=== PATIENT | male | born 1975 | race Two or more races ===

== ENCOUNTER 2020-02-03 18:59 | Inpatient (IN) | payer OTHER ==
[~2020-02-03] VITALS: Ht 180.3 cm; Wt 99.8 kg
[2020-02-03] MEDS ORDERED: IV NS 0.9% 1,000 ML IV ONE (19:15)
[2020-02-03] MEDS ORDERED: ACETAMINOPHEN ES 500 MG TABLET ONE (19:22)
[2020-02-03] MEDS ORDERED: ONDANSETRON HCL/PF 4 MG/2 ML VIAL IVP ONE (19:30)
[2020-02-03] MEDS ORDERED: ACETAMINOPHEN ES 500 MG TABLET PO ONE (19:30)
[2020-02-03] MEDS ORDERED: IV NS 0.9% 1,000 ML BAG IV ONE ×2 (19:30→21:00)
[2020-02-03] MEDS ORDERED: ONDANSETRON HCL/PF 4 MG/2 ML VIAL ONE (19:32)
--- NOTE | 2020-02-03 19:54 | NUR ---
BIB ra c/o hyperglycemia and weakness. BS>500. PT AAOX4, VSS. RR EVEN & UNLABORED. DENIES CP, SOB, DIZZINESS, DIARRHEA AT THIS TIME. PT SEEN & EVAL'D BY DR. JAY. MEDICATED ORDERED. PLACED ON DIRECTOR OF KIDS, ST. WILL CONT TO MONITOR.
[2020-02-03 20:08] LABS: BASOPHILS % (AUTO) 0.1 % (0.0-2.0); HEMATOCRIT 41 % (39-51); HEMOGLOBIN 13.5 g/dL (13.5-17.5); LYMPHOCYTES # (AUTO) 0.5 /CMM (0.8-4.8); LYMPHOCYTES % (AUTO) 2.6 % (20.0-44.0); MEAN CORPUSCULAR HGB CONC 33 g/dl (31.0-36.0); MEAN CORPUSCULAR VOLUME 92 fL (80-96); MONOCYTES # (AUTO) 0.7 /CMM (0.1-1.30); MONOCYTES % (AUTO) 3.6 % (2.0-12.0); NEUTROPHILS # (AUTO) 17.1 /CMM (1.8-8.9); NEUTROPHILS % (AUTO) 93.7 % (43.0-81.0); PLATELET COUNT (AUTO) 172 /CMM (150-450); RED BLOOD CELL COUNT(AUTO) 4.48 MIL/uL (4.5-6.0); WHITE BLOOD COUNT (AUTO) 18.3 K/uL (4.3-11.0)
[2020-02-03] MEDS ORDERED: CEFTRIAXONE 1GM BAG (ER ONLY) 50 ML IV ONE ×2 (20:30→20:32)
[2020-02-03 20:34] LABS: ALANINE AMINOTRANSFERASE 19 U/L (12-78); ALBUMIN 2.9 g/dL (3.4-5.0); ALKALINE PHOSPHATASE 108 U/L (46-116); ASPARTATE AMINOTRANSFERASE 15 U/L (15-37); B-TYPE NATRIURETIC PEPTIDE 590 PG/ML (0-125); BILIRUBIN,TOTAL 0.6 mg/dL (0.2-1.0); CALCIUM, SERUM 8.5 mg/dL (8.5-10.1); CARBON DIOXIDE 21 mmol/L (21-32); CHLORIDE 94 mmol/L (98-107); CREATININE 1.5 mg/dL (0.6-1.3); POTASSIUM 4.5 mmol/L (3.5-5.1); SODIUM SERUM 129 mmol/L (136-145); TOTAL PROTEIN, SERUM 6.6 g/dL (6.4-8.2); UREA NITROGEN, BLOOD 20 mg/dL (7-18)
[2020-02-03 20:37] LABS: GLUCOSE 480 mg/dL (74-106)
[2020-02-03] MEDS ORDERED: INSULIN REGULAR, HUMAN 100 UNIT/ML 10 ML VIAL ONE (20:46)
[2020-02-03 20:51] LABS: BAND % (MANUAL) 8 % (0.0-5.0); LYMPHOCYTES % (MANUAL) 4 % (16-48); MONOCYTES % (MANUAL) 4 % (0-11.0); NEUTROPHILS % (MANUAL) 84 (42-76)
--- NOTE | 2020-02-03 20:59 | NUR ---
PT EYES CLOSED, EASILY AWAKEN BY VERBAL STIMULI. DENIES CP, SOB, DIZZINESS, N/V AT THIS TIME. WILL CONT TO MONITOR.
[2020-02-03] MEDS ORDERED: INSULIN REGULAR, HUMAN 100 UNIT/ML 10 ML VIAL SQ ONE (21:00)
--- NOTE | 2020-02-03 21:00 | NUR ---
PER ADMITTING AWAITING [employer]ET[employer] INTERN MAY TO ARRANGE PEER TO PEER
--- NOTE | 2020-02-03 21:27 | NUR ---
CALLED REGAL DECEMBER, , STATES ARRANGING PEER TO PEER WITH MD WILL MOST LIKELY BE TRANSFERRED
--- NOTE | 2020-02-03 21:29 | NUR ---
DR GAMEZ SPEAKING WITH DR JAY
[2020-02-03 21:39] LABS: CREATINE KINASE, TOTAL 34 U/L (39-308); FERRITIN 291 ng/mL (8-388)
--- NOTE | 2020-02-03 21:53 | NUR ---
PT IS GOING TO 261
[2020-02-03] MEDS ORDERED: IBUPROFEN 600 MG TABLET PO ONE ×2 (21:56→22:00)
[2020-02-03] MEDS ORDERED: INSULIN GLARGINE, 100 UNIT/ML CARTRIDGE SQ SCH (22:00)
[2020-02-03] MEDS ORDERED: DEXTROSE 50%-WATER 50 ML DISP.SYRIN IV PRN (22:00)
[2020-02-03] MEDS ORDERED: ZOLPIDEM TARTRATE 5 MG TABLET PO PRN (22:00)
--- NOTE | 2020-02-03 22:40 | NUR ---
REPORT GIVEN TO RENATA MARX FOR ELVIS.
[2020-02-03] MEDS ORDERED: VANCOMYCIN 2 GM in IV NS 0.9% 500 ML IV ONE (23:00)
--- NOTE | 2020-02-03 23:20 | NUR ---
RN NOTE PT ARRIVED FROM ER VIA [facility] ACCOMPANIED BY 2 RNS UNDER ACLS PROTOCOL. PT TRANSFERRED FROM [facility] TO ASSIGNED BED VIA 2 PERSON ASSIST. PT IS ALERT AND ORIENTED X 2 WITH PERIODS OF CONFUSION AT THIS TIME. PT PLACED ON BEDSIDE MONITOR WHICH SHOWS SINUS TACHYCARDIA 122. PT WITH 18G IV ON LEFT AC FROM ER. PATENT AND FLUSHING WELL. NOTED WITH SCROTAL SWELLING AND REDNESS. PT DOES NOT REMEMBER WHEN SYMPTOMS FIRST STARTED. PT UNABLE TO GIVE MEDICAL OR FAMILY HISTORY AT THIS TIME DUE TO WEAKNESS AND CONFUSION. PT PLACED ON 2 L OF O2 VIA NC. PT REFUSED INSERTION OF SHIPMAN CATHETER. CALL LIGHT WITHIN REACH, SAFETY MEASURES IN PLACE, WILL MONITOR PATIENT.
[2020-02-03 23:31] VITALS: BP 88/57
[2020-02-03] MEDS: IV 1/2NS 1000 ML 1,000 ML IV PRN (23:34)
[2020-02-03] MEDS: BLOOD SUGAR DIAGNOSTIC 1 EACH STRIP VI SCH (23:34)
[2020-02-03] MEDS ORDERED: VANCOMYCIN 1 GM VIAL ONE (23:38)
[2020-02-03] MEDS ORDERED: PIPERACILLIN /TAZOBACTAM 2.25 G VIAL IV ONE (23:39)
[2020-02-03 23:42] LABS: BILIRUBIN,DIRECT 0.3 mg/dL (0.0-0.2)
[2020-02-04] VITALS (15 sets, daily range): BP systolic 89–140; BP diastolic 56–83
[2020-02-04] MEDS ORDERED: IV NS 0.9% 250 ML IV ONE
[2020-02-04] MEDS ORDERED: PIPERACILLIN /TAZOBACTAM 2.25 G in IV D5W 50 ML IV SCH ×4
--- NOTE | 2020-02-04 | NUR ---
RN NOTE NOTED WITH LACTIC ACID 3.9. NOTED TO BE TRENDING DOWNWARD. DR. HOWARD NOTIFIED OF TREND.
[2020-02-04 00:09] LABS: BILIRUBIN,URINE Negative (NEGATIVE); BLOOD, URINE Negative Ery/uL (NEGATIVE); COLOR,URINE Yellow (YELLOW); KETONES,URINE Trace (NEGATIVE); LEUKOCYTE ESTERASE ,URINE Trace (NEGATIVE); NITRITE, URINE Negative (NEGATIVE); PROTEIN,URINE Negative (NEGATIVE); UGLUCOSE >=1000 mg/dL (NEGATIVE); UROBILINOGEN,URINE 0.2 EU/dL (0.2)
[2020-02-04 00:10] LABS: APPEARANCE,URINE HAZY (CLEAR)
[2020-02-04] MEDS ORDERED: INSULIN REGULAR, HUMAN 100 UNIT/ML 3 ML VIAL ONE (00:15)
[2020-02-04] MEDS ORDERED: INSULIN GLARGINE, 100 UNIT/ML CARTRIDGE SQ ONE ×2 (00:15→08:30)
[2020-02-04 00:22] LABS: BACTERIA,URINE Moderate /HPF (None Seen); SQUAMOUS EPITHELIAL CELL,UR Few /HPF (None Seen)
[2020-02-04 00:23] LABS: MUCUS,URINE Few /LPF (None Seen); YEAST,URINE Moderate /HPF (None Seen)
[2020-02-04] MEDS: *INSULIN REGULAR(HUMULIN R)HUM 100 UNIT/ML VIAL SQ PRN ×3 (00:40→18:19)
--- NOTE | 2020-02-04 04:25 | NUR ---
RN NOTE PT NOTED TO BE MORE ALERT AND ORIENTED. A/O x 3. PT STILL LETHARGIC BUT AROUSABLE TO VERBAL AND TACTILE STIMULI AND ABLE TO RESPOND TO QUESTIONS MORE APPROPRIATELY, WILL CONTINUE TO MONITOR PATIENT.
[2020-02-04 04:50] LABS: THYROID STIMULATING HORMONE 0.799 uIU/mL (0.358-3.74)
--- NOTE | 2020-02-04 05:09 | NUR ---
RN NOTE RECEIVED ALERT FOR CRITICAL LAB VALUE: LACTIC ACID 3.1. NOTED TO BE TRENDING DOWNWARD. DR. HOWARD NOTIFIED.
--- NOTE | 2020-02-04 05:28 | NUR ---
RN NOTE NOTED WITH HEART RATE IN THE 130S. PT IS ASYMPTOMATIC. PAGED DR. HOWARD.
--- NOTE | 2020-02-04 05:36 | NUR ---
RENATA NOTE DR. HOWARD CALLED BACK WITH NEW ORDER FOR METOPROLOL 25G PO Q12H. ORDER NOTED AND CARRIED OUT. Addendum: 02/04/20 at 0537 by FRANCISCO J HAYES RN ERROR. METOPROLOL 25MG PO Q12H. Addendum: 02/04/20 at 0539 by FRANCISCO J HAYES RN ERROR. METOPROLOL 25MG PO BID STARTING NOW.
[2020-02-04] MEDS: METOPROLOL TARTRATE 25 MG TABLET PO SCH ×2 (05:49→17:45)
[2020-02-04] MEDS ORDERED: METOPROLOL TARTRATE 25 MG TABLET PO SCH (06:00)
[2020-02-04] MEDS: IV 1/2NS 1000 ML 1,000 ML IV PRN (06:51)
--- NOTE | 2020-02-04 06:55 | NUR ---
RN CLOSING NOTE PT RESTING IN BED IN SEMI ASENCIO'S POSITION EASILY AROUSABLE TO VERBAL AND TACTILE STIMULI. ALERT AND ORIENTED X 3. ABLE TO MAKE NEEDS KNOWN. PT ASSISTED WITH BED JOHNSON BUT PT WAS UNABLE TO HAVE A BOWEL MOVEMENT. PT ON 2L OF O2 VIA NC. PT ON BEDSIDE MONITOR WHICH SHOWS SINUS TACHYCARDIA 121. PT IS ASYMPTOMATIC. DENIES PAIN OR DISCOMFORT. RUNNING WITH 0.45% NS @ 125ML/HOUR ORDERED VIA LEFT AC 18 G IV. NO SIGNS OF COMPLICATIONS AT SITE. CALL LIGHT WITHIN REACH, SAFETY MEASURES IN PLACE, WILL ENDORSE TO MORNING RN.
[2020-02-04] MEDS: BLOOD SUGAR DIAGNOSTIC 1 EACH STRIP VI SCH ×4 (07:30→22:31)
[2020-02-04] MEDS: INSULIN REGULAR, HUMAN 100 UNIT/ML 3 ML VIAL SQ PRN (08:00)
--- NOTE | 2020-02-04 08:17 | NUR ---
WOUND CARE CONSULT: REVIEWED CHART, NURSING DOCUMENTATION AND PHOTO WHICH SHOWS REDNESS, SWELLING AND DISCOLORATION TO SCROTUM, PRESENT ON ADMISSION. RECOMMENDATIONS MADE FOR SKIN CARE AND PROTECTION. DISCUSSED WITH NURSING STAFF. WILL SEE PRN. CURRENT HOLLY SCORE IS 16. MD IN AGREEMENT WITH PLAN OF CARE.
[2020-02-04] MEDS ORDERED: LISI-607 PO (08:30)
[2020-02-04] MEDS ORDERED: ATOR20TA (08:30)
[2020-02-04] MEDS ORDERED: DICL100T85 MT (08:30)
[2020-02-04] MEDS ORDERED: OXYB5TAB16 MT (08:30)
[2020-02-04] MEDS ORDERED: INSU100I26 SQ (08:30)
[2020-02-04] MEDS ORDERED: Z GUARD REMEDY 2 OZ OINT TP PRN (08:30)
[2020-02-04] MEDS ORDERED: ESCI10TA PO (08:30)
[2020-02-04] MEDS ORDERED: GLYB5TAB7 PO (08:30)
[2020-02-04] MEDS ORDERED: OMEP20CA15 PO (08:30)
[2020-02-04] MEDS ORDERED: FEE PK DOSING 1 MIN EA MC ONE (08:42)
[2020-02-04 09:25] LABS: CALCIUM, SERUM 7.6 mg/dL (8.5-10.1); CREATININE 1.4 mg/dL (0.6-1.3); POTASSIUM 4.3 mmol/L (3.5-5.1)
[2020-02-04] MEDS: CLOTRIMAZOLE 1% 15 GM TUBE TP SCH ×2 (09:50→17:46)
[2020-02-04] MEDS: Z GUARD REMEDY 2 OZ OINT TP SCH (09:50)
[2020-02-04] MEDS: PIPERACILLIN /TAZOBACTAM 3.375 G in IV D5W 100 ML IV SCH ×2 (09:53→19:28)
[2020-02-04] MEDS: ENOXAPARIN SODIUM 40 MG/0.4 ML DISP.SYRIN SQ SCH (09:53)
[2020-02-04] MEDS: ACETAMINOPHEN 325 MG TABLET PO PRN (10:27)
--- NOTE | 2020-02-04 11:04 | NUR ---
ICU to MedSurg Downgrade order from Dr. Ann, medsurg status, aware of fever 103.2 + HR 130s+scrotum swelling. Transfer initiated per ACLS protocol, with belongings (cellphone, clothes). BP 120/82, sinus rhythm, HR 130s, SPO2 94% on RA, RR 35. Receiving RN Rachana at bedside. Suction setup.
--- NOTE | 2020-02-04 11:05 | NUR ---
RECEIVED PT ON BED FROM ICU NURSE, PATIENT IS A/OX4, N RA, TOLERATING WELL, NO S/SX OF DISTRESS,IV SITE ON LAC G18 WITH DOUBLE LUMEN NOTED . INTACT AND PATENT, RUNNING 1/2 NS @125 CC/HR AND ZIXYN @25 CC/HR; PT IS USING URINAL, BED IN LOWEST POSITION, CALL LIGHT IN REACH, SAFETY MEASURES IMPLEMENTED, WILL CONT TO MONITOR
[2020-02-04] MEDS: VANCOMYCIN 1.5 GM in IV D5W 500 ML IV SCH (12:46)
--- NOTE | 2020-02-04 19:25 | NUR ---
RN CLOSING NOTE PT REMAINS IN BED, A/OX4, NO SIGNS AND SYMPTOMS OF DISTRESS NOTED, COMFORT NEEDS ARE MET, SAFETY MEASURES IMPLEMENTED, CALL LIGHT WITHIN REACH, BED IN LOWEST POSITION, WILL ENDORSE TO PM SHIFT RN
--- NOTE | 2020-02-04 19:30 | NUR ---
RN OPENING NOTE RECEIVED PATIENT IN BED RESTING ALERT ORIENTED X4 VERBALLY RESPONSIVE ABLE TO MAKE NEEDS KNOWN, BREATHING IS EVEN AND UNLABORED NO SOB NOT ACUTE DISTRESS AT THIS TIME,ROLL OUT FOR COVID RESULT IS PENDING,CALL LIGHT WITHIN REACH,CONTINUE TO MONITOR.
[2020-02-04] MEDS ORDERED: INSULIN GLARGINE, 100 UNIT/ML CARTRIDGE SQ SCH (22:00)
[2020-02-05] MEDS ORDERED: VANCOMYCIN 500 MG VIAL ONE (00:20)
[2020-02-05] MEDS ORDERED: VANCOMYCIN 1 GM VIAL ONE (00:25)
[2020-02-05] MEDS: VANCOMYCIN 1.5 GM in IV D5W 500 ML IV SCH ×3 (00:30→20:48)
[2020-02-05] MEDS: PIPERACILLIN /TAZOBACTAM 3.375 G in IV D5W 100 ML IV SCH ×3 (01:44→17:29)
[2020-02-05 04:00] VITALS: BP 102/57
--- NOTE | 2020-02-05 06:00 | NUR ---
RN CLOSING NOTE, PATIENT REMAINS IN STABLE CONDITON,NEGATIVE FOR COVID ALERT ORIENTED X4 VERBALLY RESPONSIVE NO SOB NOT ACUTE DISTRESS NOTED,PATINT HAD TEMERATURE 100.1 AT 0500 ACETAMINOPHEN 650 MG GIVEN AT 0500,PATIENT REFUSED TO BE CHANGED,ALL DUE MEDS GIVEN MD ORDERED,ALL NEEDS MET.TRANSFERRED TO SECOND FLOOR AT ROOM 201 AT 0600 REPORT GIVEN TO JEANINE.
--- NOTE | 2020-02-05 07:00 | NUR ---
MS RN NOTES PATIENT IN BED ALERT ORIENTED X 4. NO ACUTE DISTRESS NOTED. BREATHING UNLABORED. NO COMPLAINT OF PAIN AT THIS TIME. IV ACCESS PATENT AND INTACT. NO REDNESS , NO SWELLING NOTED. SAFETY MEASURES IN PLACE. CALL LIGHT WITHIN REACH WILL CONTINUE TO MONITOR ACCORDINGLY.
[2020-02-05] MEDS: BLOOD SUGAR DIAGNOSTIC 1 EACH STRIP VI SCH ×4 (07:07→21:30)
[2020-02-05] MEDS: INSULIN REGULAR, HUMAN 100 UNIT/ML 3 ML VIAL SQ PRN ×3 (07:08→17:25)
[2020-02-05 07:09] LABS: CALCIUM, SERUM 7.8 mg/dL (8.5-10.1); CREATININE 1.2 mg/dL (0.6-1.3); POTASSIUM 3.1 mmol/L (3.5-5.1)
--- NOTE | 2020-02-05 07:18 | NUR ---
RN NOTES 0313 WILMA FROM LAB CALLED FOR COVID RESULT NEGATIVE[facility] NINA DONG RN AND OIL PAINTER ABRAHAM NOTIFIED
[2020-02-05 08:00] VITALS: BP 112/68
[2020-02-05] MEDS: Z GUARD REMEDY 2 OZ OINT TP SCH (08:40)
[2020-02-05] MEDS: CLOTRIMAZOLE 1% 15 GM TUBE TP SCH ×2 (08:40→17:26)
[2020-02-05] MEDS: METOPROLOL TARTRATE 25 MG TABLET PO SCH ×2 (08:43→17:19)
[2020-02-05] MEDS: ENOXAPARIN SODIUM 40 MG/0.4 ML DISP.SYRIN SQ SCH (08:46)
[2020-02-05] MEDS ORDERED: POTASSIUM CHLORIDE 20 MEQ TAB.PRT.SR PO ONE (09:00)
--- NOTE | 2020-02-05 09:30 | NUR ---
MS RN NOTES CALLED PHARMACY FOR NEW NING VALLADARES MD, SPOKE WITH KIYA SAID THEY WILL DELIVER TO THE FLOOR. WILL ADMINISTER ONCE AVAILABLE
--- NOTE | 2020-02-05 10:00 | NUR ---
MS RN NOTES FOLLOWED UP WITH PHARMACY FOR NEW LANTUS NOT AVAILABLE YET ON THE FLOOR, SPOKE WITH KIYA SAID THEY WILL DELIVER TO THE FLOOR. WILL ADMINISTER ONCE AVAILABLE
--- NOTE | 2020-02-05 10:25 | NUR ---
MS RN NOTES PATIENT SEEN AND EVALUATION BY DR HOWARD , MADE AWARE OF WI 106 AND TEMP 99.2, NO NEW ORDERS MADE AT THIS TIME. DR HOWARD ORDERED CONSULT WITH DR RICARDO ROMERO ( urology ) for Epididymo-orchitis . ORDERS CLARIFIED AND READ BACK, NOTED AND CARRIED OUT. CALLED DR MARIE . [facility] OFFICE SPOKE WITH STAFF , NOTIFIED ABOUT THE CONSULTATION.
[2020-02-05] MEDS: INSULIN GLARGINE, 100 UNIT/ML CARTRIDGE SQ SCH ×2 (10:52→21:24)
[2020-02-05] MEDS: ACETAMINOPHEN 325 MG TABLET PO PRN (12:55)
--- NOTE | 2020-02-05 15:15 | NUR ---
MS RN NOTES SPOKE WITH RICARDO PARRISH AWARE OF THE CONSULTATION ORDERED BY DR HOWARD.
[2020-02-05 16:00] VITALS: BP 123/65
--- NOTE | 2020-02-05 18:53 | NUR ---
MS RN NOTES PATIENT IN BED ALERT ORIENTED X 4. NO ACUTE DISTRESS NOTED. BREATHING UNLABORED. NO COMPLAINT OF PAIN AT THIS TIME. IV ACCESS PATENT AND INTACT. NO REDNESS , NO SWELLING NOTED. NEEDS ATTENDED AND ANTICIPATED. KEPT CLEAN, DRY AND COMFORTABLE. SAFETY MEASURES IN PLACE. CALL LIGHT WITHIN REACH. WILL ENDORSE TO NIGHT NURSE FOR CONTINUITY OF CARE.
--- NOTE | 2020-02-05 19:40 | NUR ---
RN OPENING NOTES RECEIVED REPORT FROM BAILEY RN, STEPHANIE. FOUND Pt AWAKE, RESTING IN BED, TALKING ON THE PHONE. Pt IS A/OX4, VERBAL, ABLE TO MAKE NEEDS KNOWN; BELARUSIAN SPEAKING BUT UNDERSTANDS THAI. NO S/S OF ACUTE DISTRESS OR SOB NOTED AT THIS TIME. PER REPORT Pt's HR BASELINE ST BETWEEN 110-120s (DR HOWARD IS AWARE). PER REPORT WAITING FOR UROLOGY CONSULT FROM DR KAUR. IV ACCESS FOUND ON LAC #18G & LHAND #22G & LWRIST #18G. SAFETY MEASURES IN PLACED. BED LOW, LOCKED, HOB ELEVATED, SIDE RAILS UP, CALL LIGHT AND BEDSIDE TABLE WITHIN REACH. WILL CONTINUE TO MONITOR Pt's CONDITION AND SAFETY THROUGHOUT THE NIGHT.
--- NOTE | 2020-02-05 19:48 | NUR ---
RN NOTES SPOKE WITH DR HOWARD ON THE PHONE. INFORMED HIM OF Pt's HIGH ORAL TEMP OF 102.9F. DR HOWARD ORDERED AN ADDITIONAL PRN OF MOTRIN 600MG PO Q6H FOR TEMP. WILL CARRY OUT ORDER.
[2020-02-05 20:00] VITALS: BP 118/66
[2020-02-05] MEDS ORDERED: IBUPROFEN 600 MG TABLET PO PRN (20:00)
[2020-02-05] MEDS: HYDROCODONE/APAP 5/325MG 1 EACH TABLET PO PRN (20:49)
[2020-02-05] MEDS: *INSULIN REGULAR(HUMULIN R)HUM 100 UNIT/ML VIAL SQ PRN (21:28)
--- NOTE | 2020-02-05 21:31 | NUR ---
RN NOTES BG 230. ADMINISTERED SCHEDULED LANTUS 20UN VIA LT DELTOID. GAVE ADDITIONAL 4UN OF REGULAR INSULIN PER SLIDING SCALE VIA LEFT LOWER ABD.
[2020-02-05] MEDS ORDERED: IV NS 0.9% 1,000 ML IV ONE (22:00)
--- NOTE | 2020-02-05 22:00 | NUR ---
RN NOTES RECHECKED ORAL TEMP S/P ADMINISTERING MOTRIN 600MG PO & PROVIDED ICE BATH NEW TEMP: 98.4F
--- NOTE | 2020-02-05 22:27 | NUR ---
RN NOTES Pt WAS SEEN BY UROLOGIST DR KAUR AT BEDSIDE FOR CONSULT. PER DR KAUR SCHEDULED Pt FOR A INCISION & DRAINAGE OF SCROTAL ABSCESS & SCROTAL DEBRIDEMENT TOMORROW 02/06/20 @1400. DR SPOKE WITH Pt IN THE ROOM ABOUT THE PROCEDURE, Pt AGREED TO IT. ORDER FOR CONSENT WAS PLACED BY DR. KAUR, WILL OBTAIN WRITTEN CONSENT FROM Pt AND PLACE IN CHART ROBERT.
[2020-02-05] MEDS ORDERED: LEVOFLOXACIN 500 MG /D5W 100ML 100 ML IV ONE (23:20)
[2020-02-05] MEDS: LEVOFLOXACIN 500 MG /D5W 100ML 500 MG in PREMIX 1 EA IV SCH (23:26)
[2020-02-06] VITALS (8 sets, daily range): BP systolic 120–141; BP diastolic 68–79
[2020-02-06] MEDS: PIPERACILLIN /TAZOBACTAM 3.375 G in IV D5W 100 ML IV SCH ×3 (02:49→17:54)
[2020-02-06] MEDS: VANCOMYCIN 1.5 GM in IV D5W 500 ML IV SCH ×5 (04:50→23:44)
--- NOTE | 2020-02-06 06:30 | NUR ---
RN NOTES AC ACCUCHECK BG 285. NO INSULIN COVERAGE GIVEN AT THIS TIME DUE TO NPO SURGERY STATUS.
--- NOTE | 2020-02-06 06:35 | NUR ---
RN NOTES CT ABD PELVIS W/ WO CONTRAST CONSENT SIGNED BY Pt AND PLACED IN FOLDER. CALLED RADIOLOGY ASKING FOR STAT, WAITING FOR KILN FIRER BY RADIOLOGY.
[2020-02-06 06:45] LABS: CALCIUM, SERUM 7.6 mg/dL (8.5-10.1); CREATININE 1.6 mg/dL (0.6-1.3); POTASSIUM 3.6 mmol/L (3.5-5.1)
--- NOTE | 2020-02-06 06:50 | NUR ---
RN CLOSING NOTES NO SIGNIFICANT CHANGES IN Pt'S CONDITION. Pt REMAINED STABLE PER BASELINE. NO S/S OF ACUTE DISTRESS OR SOB NOTED. ALL NEEDS MET AND ATTENDED TO. SAFETY MEASURES IN PLACE. Pt IS AWAKE, RESTING IN BED TALKING ON THE PHONE. CURRENTLY NPO WITH PROCEDURE SCHEDULED TODAY AT 1400. WAITING FOR RADIOLOGY TO FINISHING SUPERVISOR Pt ROBERT FOR CT ABD/PELVIS. WILL ENDORSE TO DAYSHIFT RN FOR Pt's ELVIS.
[2020-02-06 06:51] LABS: BASOPHILS % (AUTO) 0.4 % (0.0-2.0); EOSINOPHILS % (AUTO) 1.4 % (0.0-6.0); HEMATOCRIT 34 % (39-51); HEMOGLOBIN 11.4 g/dL (13.5-17.5); LYMPHOCYTES # (AUTO) 0.9 /CMM (0.8-4.8); LYMPHOCYTES % (AUTO) 9.1 % (20.0-44.0); MEAN CORPUSCULAR HGB CONC 34 g/dl (31.0-36.0); MEAN CORPUSCULAR VOLUME 91 fL (80-96); MONOCYTES # (AUTO) 0.7 /CMM (0.1-1.30); MONOCYTES % (AUTO) 7.3 % (2.0-12.0); NEUTROPHILS # (AUTO) 7.7 /CMM (1.8-8.9); NEUTROPHILS % (AUTO) 81.8 % (43.0-81.0); PLATELET COUNT (AUTO) 121 /CMM (150-450); RED BLOOD CELL COUNT(AUTO) 3.69 MIL/uL (4.5-6.0); WHITE BLOOD COUNT (AUTO) 9.4 K/uL (4.3-11.0)
--- NOTE | 2020-02-06 07:10 | NUR ---
MS RN NOTES RECEIVED PATIENT IN BED, ALERT AND ORIENTED X4. HOB ELEVATED. ON ROOM AIR WITH SPO2 OF 95%. DENIES ANY C/O PAIN NOR DISCOMFORT AT THIS TIME. REMAIN ON NPO FOR SCHEDULED SURGERY AT 2 PM FOR I&D OF SCROTAL ABSCESS AND SCROTAL DEBRIDEMENT. LEFT AC # 18; LEFT HAND #22 AND LEFT WRIST #18 INTACT AND PATENT. BED IN LOWEST POSITION, LOCKED. BED ALARM ON. CALL LIGHT WITHIN REACH. ABLE TO VERBALIZE NEEDS.
[2020-02-06] MEDS ORDERED: IOHEXOL-300 100 ML VIAL IV ONE (07:24)
[2020-02-06] MEDS ORDERED: IV NS 0.9% 250 ML IV ONE (07:24)
[2020-02-06] MEDS ORDERED: CT SWABBABLE VALVE TRANS SET 1 EA INFUS.SET MC ONE (07:24)
--- NOTE | 2020-02-06 07:30 | NUR ---
MS RN NOTES PATIENT OFF UNIT, IN CT.
[2020-02-06] MEDS: BLOOD SUGAR DIAGNOSTIC 1 EACH STRIP VI SCH ×4 (07:35→21:12)
--- NOTE | 2020-02-06 08:07 | NUR ---
MS RN NOTES PATIENT RETURNED TO UNIT FROM CT.
[2020-02-06] MEDS: METOPROLOL TARTRATE 25 MG TABLET PO SCH ×2 (08:45→17:28)
[2020-02-06] MEDS: INSULIN GLARGINE, 100 UNIT/ML CARTRIDGE SQ SCH ×2 (08:45→21:15)
[2020-02-06] MEDS: ENOXAPARIN SODIUM 40 MG/0.4 ML DISP.SYRIN SQ SCH (08:46)
--- NOTE | 2020-02-06 08:46 | NUR ---
MS RN NOTES HELD SHANIQUE AND NING. PATIENT NPO AND SCHEDULED FOR SURGERY AT 2PM FOR I&D OF SCROTAL ABSCESS AND SCROTAL DEBRIDEMENT.
[2020-02-06] MEDS: CLOTRIMAZOLE 1% 15 GM TUBE TP SCH ×2 (08:53→17:28)
[2020-02-06] MEDS: Z GUARD REMEDY 2 OZ OINT TP SCH (08:53)
[2020-02-06] MEDS: ARIPIPRAZOLE 5 MG TABLET PO SCH (09:14)
--- NOTE | 2020-02-06 10:54 | NUR ---
MS RN NOTES RECEIVED A CALL FROM PATIENT'S AUNT, MARIE (FROM [place]: [phone]) AND YAYA (FROM [place] [phone]). PER AUNT, PATIENT IS DISABLED AND LIVES WITH A ROOMMATE WHO IS ALSO DISABLED. PATIENT UNABLE TO CARE FOR HIMSELF, DOES NOT HAVE ANY FAMILY MEMBERS AND AUNT WOULD LIKE TO REQUEST A SKILLED REHAB FACILITY THAT CAN CARE FOR PATIENT. CM MADE AWARE.
[2020-02-06] MEDS: INSULIN REGULAR, HUMAN 100 UNIT/ML 3 ML VIAL SQ PRN ×2 (12:16→17:41)
[2020-02-06] MEDS: IV NS 0.9% 500 ML IV PRN (12:16)
--- NOTE | 2020-02-06 12:17 | NUR ---
MS RN NOTES BS 223MG/DL, HELD INSULIN COVERAGE. PATIENT NPO HAS SCHEDULED SURGERY AT 2PM.
--- NOTE | 2020-02-06 13:43 | NUR ---
MS RN NOTES PATIENT OFF UNIT, WENT TO OR.
[2020-02-06] MEDS ORDERED: FENTANYL PF 250MCG/5ML AMPUL ONE (13:44)
[2020-02-06] MEDS ORDERED: MIDAZOLAM HCL 2 MG/2ML VIAL ONE (13:44)
[2020-02-06] MEDS ORDERED: FAMOTIDINE/PF INJ 20 MG/2 ML VIAL IV ONE (13:45)
[2020-02-06] MEDS ORDERED: GENTAMICIN 80 MG/2 ML VIAL ONE (15:27)
[2020-02-06] MEDS ORDERED: BACITRACIN 50000 UNITS/VIAL ONE (15:27)
[2020-02-06] MEDS ORDERED: DAKINS FULL STRENGTH (0.5%) 480 ML BOTTLE TOP ONE (17:00)
--- NOTE | 2020-02-06 17:20 | NUR ---
MS RN NOTES PATIENT RETURNED FROM OR. ALERT AND ORIENTED X4. DENIES ANY C/O PAIN NOR DISCOMFORT AT THIS TIME. DR. AREVALO SPOKE TO DR. HOWARD REGARDING SURGERY. UROLOGY F/U PRN ONLY.
--- NOTE | 2020-02-06 17:55 | NUR ---
MS RN NOTES AWAITING FOR DAKINS SOLUTION TO SHANDA DELIVERED.
--- NOTE | 2020-02-06 18:55 | NUR ---
MS RN NOTES PATIENT RESTING COMFORTABLY IN BED. HOB ELEVATED. REMAIN ON ROOM AIR WITH SPO2 OF 99%. DENIES ANY C/O PAIN NOR DISCOMFORT AT THIS TIME. DRESSING IN PLACE WITH SCROTAL SUPPORT IN PLACE. LEFT AC # 18; LEFT HAND #22 AND LEFT WRIST #18 INTACT AND PATENT WITH NS INFUSING AT 100ML/HR. BED IN LOWEST POSITION, LOCKED. BED ALARM ON. CALL LIGHT WITHIN REACH. IN NO APPARENT DISTRESS.
[2020-02-06] MEDS: DAKINS FULL STRENGTH (0.5%) 480 ML BOTTLE TOP SCH (19:58)
[2020-02-06] MEDS: HYDROCODONE/APAP 5/325MG 1 EACH TABLET PO PRN (20:15)
[2020-02-06] MEDS: *INSULIN REGULAR(HUMULIN R)HUM 100 UNIT/ML VIAL SQ PRN (21:17)
[2020-02-06] MEDS: LEVOFLOXACIN 500 MG /D5W 100ML 500 MG in PREMIX 1 EA IV SCH (21:30)
--- NOTE | 2020-02-06 23:30 | NUR ---
2030 LAB HERE TO DRAW THE TROUGH OF THE VANCO LEVEL. RECEIVED A CALL THAT THE VANCO LEVEL 68! ASKED THEM TO COME REDRAW THAT SEEM WAY TOO HIGH.. REDRAW WAS THE BERNARDO 68! CALLED MD HOWARD AND HE SAID TO HOLD THE NEXT 2 DOSES AND LET THE PHARM KNOW IN THE AM. CALLED THE OUTSIDE PHARM AND A DID LET THEM KNOW ALSO INSTRUCTED TO HOLD THE VANCO
[2020-02-07] MEDS: HYDROCODONE/APAP 5/325MG 1 EACH TABLET PO PRN ×3 (02:21→20:22)
[2020-02-07] MEDS: PIPERACILLIN /TAZOBACTAM 3.375 G in IV D5W 100 ML IV SCH ×3 (02:21→18:09)
--- NOTE | 2020-02-07 04:39 | NUR ---
ENDING NOTES: 02/05 VANCO TROUGH 68 2100 VANCO AND 0500 VANCO NOT GIVEN. CALL PLACED TO md Quintana CALLED MADE AWARE AND THE NITE PHARM MADE AWARE. MEDICATE WITH NORCO AND EFFECTIVE X2 DRESING CHANGED ON THE SCROTUM OREDERED USING DAKINS SOLUTION
[2020-02-07] MEDS: BLOOD SUGAR DIAGNOSTIC 1 EACH STRIP VI SCH ×4 (05:46→22:02)
[2020-02-07] MEDS: INSULIN REGULAR, HUMAN 100 UNIT/ML 3 ML VIAL SQ PRN (06:30)
[2020-02-07 06:42] LABS: BASOPHILS % (AUTO) 0.1 % (0.0-2.0); EOSINOPHILS % (AUTO) 0.9 % (0.0-6.0); HEMATOCRIT 32 % (39-51); HEMOGLOBIN 10.5 g/dL (13.5-17.5); LYMPHOCYTES # (AUTO) 1.1 /CMM (0.8-4.8); LYMPHOCYTES % (AUTO) 8.8 % (20.0-44.0); MEAN CORPUSCULAR HGB CONC 33 g/dl (31.0-36.0); MEAN CORPUSCULAR VOLUME 91 fL (80-96); MONOCYTES # (AUTO) 0.6 /CMM (0.1-1.30); NEUTROPHILS % (AUTO) 85.2 % (43.0-81.0); PLATELET COUNT (AUTO) 147 /CMM (150-450); RED BLOOD CELL COUNT(AUTO) 3.54 MIL/uL (4.5-6.0); WHITE BLOOD COUNT (AUTO) 12.9 K/uL (4.3-11.0)
[2020-02-07 06:44] LABS: CALCIUM, SERUM 7.1 mg/dL (8.5-10.1); CREATININE 3.3 mg/dL (0.6-1.3); POTASSIUM 3.9 mmol/L (3.5-5.1)
[2020-02-07 08:00] VITALS: BP 106/60
--- NOTE | 2020-02-07 08:00 | NUR ---
MS RN OPENING NOTES RECEIVED PATIENT IN BED, AWAKE, ALERT AND ORIENTED X4. NO CARDIAC OR RESPIRATORY DISTRESS NOTED. NO SOB NOTED. SATURATING WELL ON ON ROOM AIR WITH SPO2 OF 95%. NO COMPLAINTS OF PAIN OR DISCOFMORT AT THIS TIME. DRESSING IS INTACT AND CLEAN ON PTS SCROTAL AREA. IV ACCESS NOTED ON LEFT AC # 18; LEFT HAND #22 AND LEFT WRIST #18 INTACT AND PATENT AND FLUSHING WELL. NO S/S OF INFECTION OR INFILTRATION NOTED. NS RUNNING AT 100ML/HR. TOLERATING IV FLUIDS WELL. SAFETY PRECAUTIONS IN PLACE. BED LOCKED AND IN LOW POSITION. SIDE RAILS UP X 2. BED ALARM. CALL LIGHT WITHIN REACH. WILL CONT TO MONITOR.
[2020-02-07] MEDS: METOPROLOL TARTRATE 25 MG TABLET PO SCH ×2 (08:09→16:21)
[2020-02-07] MEDS: ARIPIPRAZOLE 5 MG TABLET PO SCH (08:09)
[2020-02-07] MEDS: INSULIN GLARGINE, 100 UNIT/ML CARTRIDGE SQ SCH ×2 (08:13→21:00)
[2020-02-07] MEDS: ENOXAPARIN SODIUM 40 MG/0.4 ML DISP.SYRIN SQ SCH (08:15)
[2020-02-07] MEDS: Z GUARD REMEDY 2 OZ OINT TP SCH (08:52)
[2020-02-07] MEDS: CLOTRIMAZOLE 1% 15 GM TUBE TP SCH ×2 (08:52→16:21)
[2020-02-07] MEDS: DAKINS FULL STRENGTH (0.5%) 480 ML BOTTLE TOP SCH ×3 (08:52→16:21)
[2020-02-07 09:18] LABS: CALCIUM, SERUM 7.4 mg/dL (8.5-10.1); CREATININE 3.5 mg/dL (0.6-1.3); POTASSIUM 3.6 mmol/L (3.5-5.1)
[2020-02-07 16:00] VITALS: BP 112/62
[2020-02-07 17:51] LABS: APPEARANCE,URINE SL CLOUDY (CLEAR); BILIRUBIN,URINE NEGATIVE (NEGATIVE); BLOOD, URINE SMALL Ery/uL (NEGATIVE); COLOR,URINE YELLOW (YELLOW); KETONES,URINE NEGATIVE (NEGATIVE); LEUKOCYTE ESTERASE ,URINE TRACE (NEGATIVE); NITRITE, URINE NEGATIVE (NEGATIVE); PH,URINE 5.5 (5.0-8.0); PROTEIN,URINE TRACE mg/dl (NEGATIVE); UGLUCOSE NEGATIVE (NEGATIVE); UROBILINOGEN,URINE 0.2 EU/dL (0.2)
[2020-02-07 18:16] LABS: SQUAMOUS EPITHELIAL CELL,UR 0-2 /HPF (None Seen); WBC,URINE 0-2 /HPF (0-3); YEAST,URINE Many /HPF (None Seen)
[2020-02-07 18:17] LABS: BACTERIA,URINE 3+ /HPF (None Seen); FINE GRANULAR CASTS,URINE Few /LPF (None Seen)
--- NOTE | 2020-02-07 18:40 | NUR ---
NEPHROLOGY CONSULT PT WAS SEEN BY DR. FRAGA. NOTIFIED REGARDING ELEVATED BUN AND CR. MD ORDERED NEPHROLOGY CONSULT BY DR. WILLETT. CHARGE NURSE NOTIFIED AND MADE AWARE. DR. SALGADO MADE AWARE WELL.
--- NOTE | 2020-02-07 18:44 | NUR ---
MS RN CLOSING NOTES PATIENT IN BED, AWAKE, ALERT AND ORIENTED X4. NO CARDIAC OR RESPIRATORY DISTRESS NOTED. NO SOB NOTED. SATURATING WELL ON ON ROOM AIR WITH SPO2 OF 95%. NO COMPLAINTS OF PAIN OR DISCOMFORT AT THIS TIME. WOUND TREATMENT DONE TO SCROTAL AREA. DRESSING IS INTACT AND CLEAN ON PTS SCROTAL AREA. IV ACCESS NOTED ON LEFT AC # 18; LEFT HAND #22 AND LEFT WRIST #18 INTACT AND PATENT AND FLUSHING WELL. NO S/S OF INFECTION OR INFILTRATION NOTED. NS RUNNING AT 100ML/HR. TOLERATING IV FLUIDS WELL. ATB ADMINISTERED. STILL AWAITING FOR NEPHRO CONSULT WITH DR. SALGADO. SAFETY PRECAUTIONS IN PLACE. BED LOCKED AND IN LOW POSITION. SIDE RAILS UP X 2. BED ALARM. CALL LIGHT WITHIN REACH. WILL CONT TO MONITOR.
[2020-02-07 18:57] LABS: CREATININE, URINE 28.4 MG/DL (30.0-125.0)
--- NOTE | 2020-02-07 19:40 | NUR ---
RN OPENING NOTES RECEIVED REPORT FROM BAILEY RNDHAVAL. FOUND Pt AWAKE, RESTING IN BED, TALKING ON THE PHONE. Pt IS A/OX4, VERBAL, ABLE TO MAKE NEEDS KNOWN; TANZANIAN SPEAKING BUT UNDERSTANDS FINNISH. NO S/S OF ACUTE DISTRESS OR SOB NOTED AT THIS TIME. IV ACCESS FOUND ON LAC #18G & LHAND #22G & LWRIST #18G. SAFETY MEASURES IN PLACED. BED LOW, LOCKED, HOB ELEVATED, SIDE RAILS UP, CALL LIGHT AND BEDSIDE TABLE WITHIN REACH. WILL CONTINUE TO MONITOR Pt's CONDITION AND SAFETY THROUGHOUT THE NIGHT.
[2020-02-07] MEDS: ACETAMINOPHEN 325 MG TABLET PO PRN (20:21)
[2020-02-07 20:30] VITALS: BP 121/72
--- NOTE | 2020-02-07 20:30 | NUR ---
RN NOTES ORAL TEMP OF 103F. ADMINISTERED TYLENOL 650MG FOR FEVER. ASKED Pt IF WE COULD GIVE HIM AN ICE BATH TO HELP REDUCE HIS TEMP. Pt ASKED IF WE COULD COME BACK IN AN HOUR BECAUSE HE IS TALKING ON THE PHONE WITH HIS FAMILY. ICE BAGS GIVEN TO Pt, PLACED UNDER ARMS AND NECK.
--- NOTE | 2020-02-07 21:35 | NUR ---
RN NOTES CAME BACK TO ROOM TO ASK IF Pt IS READY FOR HIS ICE BATH. Pt WAS STILL TALKING ON THE PHONE WITH HIS FAMILY AND ASKED TO COME BACK AGAIN LATER. TOLD HIM THAT I WILL COME BACK IN 30MIN. Pt AGREED.
[2020-02-07] MEDS: LEVOFLOXACIN 500 MG /D5W 100ML 500 MG in PREMIX 1 EA IV SCH (22:00)
--- NOTE | 2020-02-07 22:06 | NUR ---
RN NOTES HS ACCUCHECK BG 109. HELD SCHEDULED LANTUS. NO INSULIN COVERAGE NEEDED AT THIS TIME.
--- NOTE | 2020-02-07 22:07 | NUR ---
RN NOTES Pt AGREED TO AN ICE BATH. ASKED Pt IF I COULD CHANGE HIS WOUND DRESSING NOW, Pt REFUSED AT THIS TIME AND SAID LATER.
--- NOTE | 2020-02-07 23:00 | NUR ---
RN NOTES RECHECKED TEMP. NEW ORAL TEMP OF 98.6F
--- NOTE | 2020-02-08 00:48 | NUR ---
RN NOTES STARTED NEW IV ACCESS ON RAC #18G & RHAND #22G. INTACT AND FLUSHING WELL.
[2020-02-08] MEDS: PIPERACILLIN /TAZOBACTAM 3.375 G in IV D5W 100 ML IV SCH ×2 (02:25→10:37)
[2020-02-08] MEDS: HYDROCODONE/APAP 5/325MG 1 EACH TABLET PO PRN (02:28)
--- NOTE | 2020-02-08 03:00 | NUR ---
RN NOTES ASKED Pt IF I COULD CHANGE THE WOUND DRESSING NOW, EXPLAINED THAT THE DRESSING NEEDED TO BE CHANGED NOW AND THAT IT IS IMPORTANT TO KEEP IT CLEAN. Pt FINALLY AGREED TO IT. WOUND CARE PROVIDED.
[2020-02-08] MEDS: IV NS 0.9% 500 ML IV PRN (06:10)
--- NOTE | 2020-02-08 06:31 | NUR ---
RN NOTES AC ACCUCHECK BG 116. NO INSULIN COVERAGE NEEDED AT THIS TIME.
--- NOTE | 2020-02-08 06:50 | NUR ---
RN CLOSING NOTES NO SIGNIFICANT CHANGES IN Pt's CONDITION. Pt REMAINED STABLE PER BASELINE. NO S/S OF ACUTE DISTRESS OR SOB NOTED DURING THE NIGHT. ALL NEEDS MET AND ATTENDED TO. SAFETY MEASURES IN PLACE. Pt IS RESTING COMFORTABLY IN BED. WILL ENDORSE TO DAYSHIFT RN Pt's ELVIS.
[2020-02-08 07:07] LABS: BASOPHILS % (AUTO) 0.2 % (0.0-2.0); EOSINOPHILS % (AUTO) 0.7 % (0.0-6.0); HEMATOCRIT 34 % (39-51); HEMOGLOBIN 10.9 g/dL (13.5-17.5); LYMPHOCYTES # (AUTO) 1.1 /CMM (0.8-4.8); LYMPHOCYTES % (AUTO) 5.5 % (20.0-44.0); MEAN CORPUSCULAR HGB CONC 32 g/dl (31.0-36.0); MEAN CORPUSCULAR VOLUME 92 fL (80-96); MONOCYTES # (AUTO) 0.5 /CMM (0.1-1.30); MONOCYTES % (AUTO) 2.4 % (2.0-12.0); NEUTROPHILS # (AUTO) 17.7 /CMM (1.8-8.9); NEUTROPHILS % (AUTO) 91.2 % (43.0-81.0); PLATELET COUNT (AUTO) 206 /CMM (150-450); RED BLOOD CELL COUNT(AUTO) 3.67 MIL/uL (4.5-6.0); WHITE BLOOD COUNT (AUTO) 19.4 K/uL (4.3-11.0)
[2020-02-08 07:25] LABS: BAND % (MANUAL) 2 % (0.0-5.0); EOSINOPHILS % (MANUAL) 1 % (0-4); LYMPHOCYTES % (MANUAL) 4 % (16-48); MONOCYTES % (MANUAL) 3 % (0-11.0); NEUTROPHILS % (MANUAL) 90 (42-76)
--- NOTE | 2020-02-08 07:30 | NUR ---
PT RECEIVED RESTING COMFORTABLY IN BED. NO S/S OR C/O PAIN OR DISTRESS NOTED. SIDE RAILS UP X2, CALL LIGHT LEFT WITHIN REACH. WILL CONTINUE PLAN OF CARE.
[2020-02-08 07:31] LABS: ALBUMIN 1.9 g/dL (3.4-5.0); BILIRUBIN,TOTAL 0.8 mg/dL (0.2-1.0); CALCIUM, SERUM 7.3 mg/dL (8.5-10.1); CREATININE 4.2 mg/dL (0.6-1.3); MAGNESIUM 2.7 mg/dL (1.8-2.4); PHOSPHORUS 4.7 mg/dL (2.5-4.9); POTASSIUM 3.7 mmol/L (3.5-5.1); TOTAL PROTEIN, SERUM 6.6 g/dL (6.4-8.2)
[2020-02-08] MEDS: BLOOD SUGAR DIAGNOSTIC 1 EACH STRIP VI SCH ×4 (07:32→21:19)
[2020-02-08 08:00] VITALS: BP 119/67
[2020-02-08] MEDS ORDERED: VANCOMYCIN 1.5 GM in IV D5W 500 ML IV SCH (08:00)
[2020-02-08] MEDS: ARIPIPRAZOLE 5 MG TABLET PO SCH (08:03)
[2020-02-08] MEDS: METOPROLOL TARTRATE 25 MG TABLET PO SCH ×2 (08:04→16:41)
[2020-02-08 08:08] VITALS: BP 119/67
[2020-02-08] MEDS: ENOXAPARIN SODIUM 40 MG/0.4 ML DISP.SYRIN SQ SCH (08:11)
[2020-02-08] MEDS: INSULIN GLARGINE, 100 UNIT/ML CARTRIDGE SQ SCH ×2 (08:12→21:19)
[2020-02-08] MEDS: DAKINS FULL STRENGTH (0.5%) 480 ML BOTTLE TOP SCH ×3 (08:12→19:22)
[2020-02-08] MEDS: CLOTRIMAZOLE 1% 15 GM TUBE TP SCH ×2 (08:13→19:23)
[2020-02-08] MEDS: Z GUARD REMEDY 2 OZ OINT TP SCH (08:13)
--- NOTE | 2020-02-08 09:00 | NUR ---
PT REFUSED DRESSING CHANGE. NURSING TEACHING PERFORMED TO EXPLAIN IMPORTANCE OF PROCEDURE BUT PATIENT CONTINUED TO REFUSE STATING HE WOULD LIKE IT TO BE DONE LATER. WILL CONTINUE TO MONITOR.
--- NOTE | 2020-02-08 13:00 | NUR ---
PT REFUSED DRESSING CHANGE ONCE AGAIN. NURSING TEACHING PERFORMED TO EXPLAIN IMPORTANCE OF PROCEDURE BUT PATIENT CONTINUED TO REFUSE STATING HE WOULD LIKE IT TO BE DONE LATER. WILL CONTINUE TO MONITOR.
[2020-02-08 16:09] VITALS: BP 121/69
[2020-02-08] MEDS: INSULIN REGULAR, HUMAN 100 UNIT/ML 3 ML VIAL SQ PRN (17:22)
[2020-02-08] MEDS: ACETAMINOPHEN 325 MG TABLET PO PRN (17:24)
[2020-02-08] MEDS: MEROPENEM 500 MG in IV NS 0.9% 50 ML IV SCH (18:13)
--- NOTE | 2020-02-08 19:45 | NUR ---
MS RN OPENING NOTES RECEIVED PATIENT RESTING IN BED COMFORTABLY; AOX4, TUNISIAN SPEAKING; ABLE TO MAKE NEEDS KNOWN; BREATHING EVEN AND UNLABORED; PATIENT TOLERATING ROOM AIR WELL; NO SOB NOTED; R AC #18 INTACT AND PATENT, FLUSHING WELL; PATIENT TOLERATING IVF WELL; R HAND # 22 INTACT AND PATENT; FLUSHING WELL; NO S/S OF REDNESS OR INFILTRATION NOTED; SHIPMAN IN PLACE, FLOWING YELLOW OUTPUT; PER AM SHIFT, PATIENT REFUSES DRESSING CHANGES, WILL TRY AGAIN LATER; SAFETY PRECAUTIONS IMPLEMENTED; BED LOCKED IN LOW POSITION; SIDE RAILS X2; CALL LIGHT WITHIN REACH; WILL CONT TO MONITOR
[2020-02-08 20:00] VITALS: BP 109/68
[2020-02-08 20:33] VITALS: BP 109/68
[2020-02-08] MEDS: LINEZOLID 600 MG TABLET PO SCH (21:10)
[2020-02-08] MEDS: *INSULIN REGULAR(HUMULIN R)HUM 100 UNIT/ML VIAL SQ PRN (21:20)
--- NOTE | 2020-02-08 21:24 | NUR ---
MS RN NOTES PATIENT REFUSING DRESSING CHANGE / SKIN ASSESSMENT AT THIS TIME; PATIENT AWARE OR RISKS/BENEFITS; PATIENT RE-EDUCATED; PATIENT STILL REFUSING
--- NOTE | 2020-02-08 23:40 | NUR ---
MS RN NOTES PATIENT REFUSING DRESSING CHANGE; PATIENT STILL REFUSING; PATIENT REPORTED AM SHIFT JUST CHANGED EARLIER; PATIENT RE-EDUCATED ON MD ORDER, PER MD DRESSING CHANGE TID; PATIENT STILL REFUSING; WILL TRY AGAIN LATER
[2020-02-09] MEDS: HYDROCODONE/APAP 5/325MG 1 EACH TABLET PO PRN ×3 (02:02→17:08)
--- NOTE | 2020-02-09 02:03 | NUR ---
MS RN NOTES PATIENT AGREED FOR DRESSING CHANGE BUT REQUESTED PAIN MEDICATION PRIOR TO DRESSING CHANGE; NORCO ADMINISTERED PER MD ORDER; VITAL SIGNS STABLE; WILL CONT TO MONITOR
[2020-02-09] MEDS: IV NS 0.9% 500 ML IV PRN ×2 (04:57→19:29)
[2020-02-09] MEDS: MEROPENEM 500 MG in IV NS 0.9% 50 ML IV SCH ×2 (05:00→17:01)
--- NOTE | 2020-02-09 06:34 | NUR ---
MS RN CLOSING NOTES PATIENT RESTING IN BED COMFORTABLY; A/OX4, PANAMANIAN SPEAKING; BREATHING EVEN AND UNLABORED; PATIENT TOLERATING ROOM AIR WELL; NO SOB NOTED; PATIENT ABLE TO MAKE NEEDS KNOWN; R AC #18 INTACT, FLUSHING WELL; L WRIST # 22 INTACT, NO S/S OF REDNESS OR INFILTRATION NOTED; FLUSHING WELL; R HAND #22 INTACT, INFUSING NS @ 100ML/HR; PATIENT TOLERATING IVF WELL; SHIPMAN CATH IN PLACE, YELLOW OUTPUT OF 1950 CC; ALL NEEDS RENDERED; SAFETY PRECAUTIONS IMPLEMENTED; BED LOCKED IN LOW POSITION; SIDE RAILS X2; CALL LIGHT WITHIN REACH; WILL ENDORSE ELVIS TO ONCOMING SHIFT
[2020-02-09] MEDS: BLOOD SUGAR DIAGNOSTIC 1 EACH STRIP VI SCH ×4 (06:37→21:06)
[2020-02-09 07:14] LABS: BASOPHILS % (AUTO) 0.2 % (0.0-2.0); EOSINOPHILS % (AUTO) 1.1 % (0.0-6.0); HEMATOCRIT 33 % (39-51); HEMOGLOBIN 11.1 g/dL (13.5-17.5); LYMPHOCYTES # (AUTO) 1.6 /CMM (0.8-4.8); LYMPHOCYTES % (AUTO) 9.1 % (20.0-44.0); MEAN CORPUSCULAR HGB CONC 34 g/dl (31.0-36.0); MEAN CORPUSCULAR VOLUME 90 fL (80-96); MONOCYTES # (AUTO) 1.3 /CMM (0.1-1.30); MONOCYTES % (AUTO) 7.5 % (2.0-12.0); NEUTROPHILS # (AUTO) 14.7 /CMM (1.8-8.9); NEUTROPHILS % (AUTO) 82.1 % (43.0-81.0); PLATELET COUNT (AUTO) 244 /CMM (150-450); RED BLOOD CELL COUNT(AUTO) 3.67 MIL/uL (4.5-6.0)
--- NOTE | 2020-02-09 07:32 | NUR ---
MS RN NOTES RECEIVED PATIENT RESTING IN BED COMFORTABLY IN MODERATE HIGH BACK REST; A/OX4, MALTESE SPEAKING; BREATHING EVEN AND UNLABORED; NO SIGNS OF DISTRESS NOTED AT THIS TIME; RAC #18 INTACT, FLUSHING WELL; LEFT WRIST # 22 INTACT, NO S/S OF REDNESS OR INFILTRATION NOTED; FLUSHING WELL; R HAND #22 INTACT, INFUSING NS @ 100ML/HR; SHIPMAN CATH IN PLACE, WITH CLEAR YELLOW OUTPUT; SAFETY PRECAUTIONS IN PLACE; BED LOCKED IN LOW POSITION; SIDE RAILS X2; CALL LIGHT WITHIN REACH; WILL CONTINUE TO MONITOR.
[2020-02-09 07:44] LABS: ALBUMIN 1.7 g/dL (3.4-5.0); BILIRUBIN,TOTAL 0.5 mg/dL (0.2-1.0); CALCIUM, SERUM 7.3 mg/dL (8.5-10.1); CREATININE 4.6 mg/dL (0.6-1.3); MAGNESIUM 2.7 mg/dL (1.8-2.4); POTASSIUM 4.1 mmol/L (3.5-5.1); TOTAL PROTEIN, SERUM 6.1 g/dL (6.4-8.2)
[2020-02-09 08:00] VITALS: BP 118/71
[2020-02-09 08:23] LABS: BAND % (MANUAL) 5 % (0.0-5.0); EOSINOPHILS % (MANUAL) 3 % (0-4); LYMPHOCYTES % (MANUAL) 5 % (16-48); MONOCYTES % (MANUAL) 12 % (0-11.0); NEUTROPHILS % (MANUAL) 75 (42-76)
[2020-02-09] MEDS: ARIPIPRAZOLE 5 MG TABLET PO SCH (08:27)
[2020-02-09] MEDS: METOPROLOL TARTRATE 25 MG TABLET PO SCH ×2 (08:27→16:34)
[2020-02-09] MEDS: LINEZOLID 600 MG TABLET PO SCH ×2 (08:27→20:58)
[2020-02-09] MEDS: ENOXAPARIN SODIUM 40 MG/0.4 ML DISP.SYRIN SQ SCH (08:29)
[2020-02-09] MEDS: INSULIN GLARGINE, 100 UNIT/ML CARTRIDGE SQ SCH ×2 (08:30→21:07)
[2020-02-09] MEDS: DAKINS QUARTER STRENGTH (0.125%) 480 ML BOTTLE TOP SCH ×3 (08:37→16:38)
[2020-02-09] MEDS: Z GUARD REMEDY 2 OZ OINT TP SCH (08:37)
[2020-02-09] MEDS: DAKINS FULL STRENGTH (0.5%) 480 ML BOTTLE TOP SCH (08:38)
[2020-02-09] MEDS: CLOTRIMAZOLE 1% 15 GM TUBE TP SCH ×2 (08:38→16:38)
--- NOTE | 2020-02-09 08:51 | NUR ---
WOUND CARE CONSULT: PT SEEN FOR SURGICAL SITE TO SCROTUM. PT HESITANT TO HAVE DRESSING CHANGE BUT AGREED. UNDERMINED AREA OF 4CM NOTED AT 11:00 POSITION. PACKED GENTLY WITH 1/4 STRENGTH DAKINS MOISTENED KERLIX, COVERED WITH GAUZE AND ABD PAD. PT TOLERATED WELL. DISCUSSED SKIN PROTECTION WITH NURSING STAFF. WILL SEE PRN. [place] IN AGREEMENT WITH PLAN OF CARE. Addendum: 02/09/20 at 0853 by OLINDA DILLARD WNDNU Amended: Links added.
--- NOTE | 2020-02-09 08:52 | NUR ---
RN NOTES HOLD INSULIN DUE TO BS OF 73. WILL CONTINUE TO MONITOR.
[2020-02-09] MEDS ORDERED: INSULIN GLARGINE, 100 UNIT/ML CARTRIDGE SQ SCH (09:00)
[2020-02-09] MEDS ORDERED: VANCOMYCIN 1.5 GM in IV D5W 500 ML IV SCH (09:00)
[2020-02-09 16:00] VITALS: BP 117/68
--- NOTE | 2020-02-09 19:12 | NUR ---
MS RN NOTES PATIENT RESTING IN BED COMFORTABLY IN MODERATE HIGH BACK REST; A/OX4, SPANISH SPEAKING; BREATHING EVEN AND UNLABORED; NO SIGNS OF DISTRESS NOTED THROUGHOUT THE SHIFT; RAC #18 INTACT, FLUSHING WELL; LEFT WRIST # 22 INTACT, NO S/S OF REDNESS OR INFILTRATION NOTED; FLUSHING WELL; R HAND #22 INTACT, INFUSING NS @ 100ML/HR; SHIPMAN CATH IN PLACE, WITH CLEAR YELLOW OUTPUT; SAFETY PRECAUTIONS IN PLACE; BED LOCKED IN LOW POSITION; SIDE RAILS X2; CALL LIGHT WITHIN REACH; WILL ENDORSE TO BRINELL TESTER NURSE FOR ELVIS.
--- NOTE | 2020-02-09 19:30 | NUR ---
MS RN OPENING NOTES PATIENT RECEIVED RESTING IN BED COMFORTABLY; A/OX4, TURKMEN SPEAKING; BREATHING EVEN AND UNLABORED; PATIENT TOLERATING ROOM AIR WELL; NO SOB NOTED; R HAND #22 INTACT, INFUSING IVF AND TOLERATING WELL; L WRIST # 22 INTACT AND PATENT; FLUSHING WELL; NO S/S OF REDNESS OR INFILTRATION NOTED; SHIPMAN CATH IN PLACE, WITH YELLOW OUTPUT; PATIENT AWARE OF WOUND TX NEEDED TO BE DONE LATER TONIGHT; PER AM SHIFT, MYCAMINE DOSE NOT READY YET, AWAITING PHARMACY FOR MED PRIOR TO ADMINISTRATION; SAFETY PRECAUTIONS IMPLEMENTED; BED LOCKED IN LOW POSITION; SIDE RAILS X2; CALL LIGHT WITHIN EASY REACH; WILL CONT TO MONITOR
[2020-02-09] MEDS: MICAFUNGIN SODIUM 100 MG in IV NS 0.9% 100 ML IV SCH (19:48)
--- NOTE | 2020-02-09 19:57 | NUR ---
MS RN NOTES MYCAMINE IV BAG DOSE RECEIVED; ANTIBIOTIC ADMINISTERED PER MD ORDER; WILL CONT TO MONITOR
[2020-02-09 20:00] VITALS: BP 128/75
[2020-02-09 20:51] VITALS: BP 128/75
[2020-02-09] MEDS: *INSULIN REGULAR(HUMULIN R)HUM 100 UNIT/ML VIAL SQ PRN (21:09)
--- NOTE | 2020-02-09 23:33 | NUR ---
MS RN NOTES PATIENT AGREED FOR WOUND TREATMENT AND TOLERATED DRESSING CHANGE WELL; WILL CONT TO MONITOR
--- NOTE | 2020-02-10 02:06 | NUR ---
MS RN NOTES PATIENT REPORTED HE FEELS NERVOUS AND REQUESTED ACCU CHECK TO BE DONE; BS 110; PATIENT REQUESTED APPLE JUICE; WILL CONT TO MONITOR
[2020-02-10 04:06] LABS: PTH, INTACT 43 pg/mL (15-65)
[2020-02-10] MEDS: MEROPENEM 500 MG in IV NS 0.9% 50 ML IV SCH ×2 (05:17→17:00)
--- NOTE | 2020-02-10 05:55 | NUR ---
MS RN NOTES PATIENT URINE OUTPUT 2550CC THROUGHOUT SHIFT; DR. CHANG INFORMED, IVF STOPPED FOR NOW; AWAITING MD ORDERS; WILL CONT TO MONITOR
[2020-02-10 06:16] LABS: *SPE A/G RATIO 0.6 (0.7-1.7); *SPE ALPHA-1-GLOBULIN 0.6 g/dL (0.0-0.4); *SPE BETA GLOBULIN 0.9 g/dL (0.7-1.3); *SPE GLOBULIN, TOTAL 3.3 g/dL (2.2-3.9); *SPE M-SPIKE Not Observed g/dL (Not Observed); *SPEGAMMA GLOBULIN 0.8 g/dL (0.4-1.8)
[2020-02-10] MEDS: BLOOD SUGAR DIAGNOSTIC 1 EACH STRIP VI SCH ×4 (06:30→21:56)
[2020-02-10] MEDS: INSULIN REGULAR, HUMAN 100 UNIT/ML 3 ML VIAL SQ PRN ×3 (06:32→17:07)
--- NOTE | 2020-02-10 06:36 | NUR ---
MS RN NOTES CLIENT ADVISOR CURRENTLY AT BED SIDE FOR AM LABS;
--- NOTE | 2020-02-10 06:45 | NUR ---
MS RN CLOSING NOTES PATIENT RESTING IN BED COMFORTABLY; A/OX4, ROMANIAN SPEAKING; BREATHING EVEN AND UNLABORED; NO SOB NOTED; PATIENT TOLERATING ROOM AIR WELL; PATIENT ABLE TO MAKE NEEDS KNOWN; R HAND # 22 INTACT INFUSING NS @ 100ML/HR; L WRIST # 22, R AC # 18; INTACT AND PATENT; FLUSHING WELL; NO S/S OF REDNESS OR INFILTRATION NOTED; SHIPMAN CATH IN PLACE WITH YELLOW OUTPUT; ALL NEEDS RENDERED; SAFETY PRECAUTIONS IMPLEMENTED; BED LOCKED IN LOW POSITION; SIDE RAILS X2; CALL LIGHT WITHIN REACH; WILL CONT ENDORSE ELVIS TO ONCOMING SHIFT
--- NOTE | 2020-02-10 07:14 | NUR ---
MS RN NOTES RECEIVED PATIENT RESTING IN BED COMFORTABLY IN MODERATE HIGH BACK REST; A/OX4, BELARUSIAN SPEAKING; BREATHING EVEN AND UNLABORED; NO SIGNS OF DISTRESS NOTED AT THIS TIME; RAC #18 INTACT, FLUSHING WELL; LEFT WRIST # 22 INTACT, NO S/S OF REDNESS OR INFILTRATION NOTED; FLUSHING WELL; R HAND #22 INTACT, INFUSING NS @ 100ML/HR; SHIPMAN CATH IN PLACE, WITH CLEAR YELLOW OUTPUT; SAFETY PRECAUTIONS IN PLACE; BED LOCKED IN LOW POSITION; SIDE RAILS X2; CALL LIGHT WITHIN REACH; WILL CONTINUE TO MONITOR.
[2020-02-10 07:18] LABS: BASOPHILS # (AUTO) 0.1 /CMM (0.0-0.2); BASOPHILS % (AUTO) 0.5 % (0.0-2.0); HEMATOCRIT 34 % (39-51); HEMOGLOBIN 11.2 g/dL (13.5-17.5); LYMPHOCYTES # (AUTO) 1.4 /CMM (0.8-4.8); LYMPHOCYTES % (AUTO) 8.4 % (20.0-44.0); MEAN CORPUSCULAR HGB CONC 33 g/dl (31.0-36.0); MEAN CORPUSCULAR VOLUME 90 fL (80-96); MONOCYTES # (AUTO) 1.2 /CMM (0.1-1.30); MONOCYTES % (AUTO) 6.9 % (2.0-12.0); NEUTROPHILS # (AUTO) 14.3 /CMM (1.8-8.9); NEUTROPHILS % (AUTO) 83.2 % (43.0-81.0); PLATELET COUNT (AUTO) 305 /CMM (150-450); RED BLOOD CELL COUNT(AUTO) 3.75 MIL/uL (4.5-6.0); WHITE BLOOD COUNT (AUTO) 17.2 K/uL (4.3-11.0)
[2020-02-10 07:30] LABS: CREATININE 4.8 mg/dL (0.6-1.3); POTASSIUM 4.6 mmol/L (3.5-5.1)
[2020-02-10 08:00] VITALS: BP 116/77
[2020-02-10] MEDS: LINEZOLID 600 MG TABLET PO SCH ×2 (08:14→22:24)
[2020-02-10] MEDS: METOPROLOL TARTRATE 25 MG TABLET PO SCH ×2 (08:14→16:15)
[2020-02-10] MEDS: ARIPIPRAZOLE 5 MG TABLET PO SCH (08:14)
[2020-02-10] MEDS: ENOXAPARIN SODIUM 40 MG/0.4 ML DISP.SYRIN SQ SCH (08:15)
[2020-02-10] MEDS: CLOTRIMAZOLE 1% 15 GM TUBE TP SCH ×2 (08:19→16:16)
[2020-02-10] MEDS: Z GUARD REMEDY 2 OZ OINT TP SCH (08:19)
[2020-02-10] MEDS: DAKINS QUARTER STRENGTH (0.125%) 480 ML BOTTLE TOP SCH ×3 (08:20→16:16)
[2020-02-10] MEDS ORDERED: HEPARIN SODIUM, PORCINE 5000 UNITS/1 ML VIAL SQ SCH (09:00)
[2020-02-10] MEDS: IV NS 0.9% 1,000 ML IV PRN (10:36)
[2020-02-10] MEDS: HYDROCODONE/APAP 5/325MG 1 EACH TABLET PO PRN ×2 (10:36→19:29)
--- NOTE | 2020-02-10 13:00 | NUR ---
RN NOTES PATIENT WAS PICKED UP VIA HOSPITAL BED FOR CT WO CONTRAST. NO SIGNS OF DISTRESS NOTED.
--- NOTE | 2020-02-10 13:30 | NUR ---
RN NOTES PATIENT CAME BACK FROM PROCEDURE, NO SIGNS OF DISTRESS NOTED. WILL CONTINUE TO MONITOR.
--- NOTE | 2020-02-10 15:00 | NUR ---
RN NOTES RESULTS OF CT ON HIP RELAYED TO ARLEN VASQUEZ. CELESTINOO AT THIS TIME. WILL CONTINUE TO MONITOR.
[2020-02-10 16:00] VITALS: BP 123/70
[2020-02-10] MEDS: MICAFUNGIN SODIUM 100 MG in IV NS 0.9% 100 ML IV SCH (18:13)
--- NOTE | 2020-02-10 18:37 | NUR ---
MS RN NOTES PATIENT RESTING IN BED COMFORTABLY IN MODERATE HIGH BACK REST; A/OX4, GUAMANIAN SPEAKING; BREATHING EVEN AND UNLABORED; NO SIGNS OF DISTRESS NOTED THROUGHOUT THE SHIFT; RAC #18 INTACT, FLUSHING WELL; LEFT WRIST # 22 INTACT, NO S/S OF REDNESS OR INFILTRATION NOTED; FLUSHING WELL; R HAND #22 INTACT, INFUSING NS @ 125ML/HR; SHIPMAN CATH IN PLACE, WITH CLEAR YELLOW OUTPUT; SAFETY PRECAUTIONS IN PLACE; BED LOCKED IN LOW POSITION; SIDE RAILS X2; CALL LIGHT WITHIN REACH; WILL ENDORSE TO MANAGER CHILD NURSE FOR ELVIS.
--- NOTE | 2020-02-10 19:00 | NUR ---
RN OPENING NOTES Received patient A/O x4, awake on bed. On RA, no SOB/respiratory distress noted at this time. With complaints of pain on R thigh and scrotum, managed with PRN medication as ordered.
--- NOTE | 2020-02-10 19:45 | NUR ---
RN NOTES Received call from OR about patient's emergency I&D. Notified OR nurse of patient's dinner intake, per patient small amount of meatballs and last water intake 1928. Awaiting for OR team's decision at this time.
[2020-02-10 20:00] VITALS: BP 129/69
--- NOTE | 2020-02-10 20:35 | NUR ---
RN NOTES Patient seen by Dr. Call, for I&D/debridement r thigh, r groin. Witnessed consent signed by the patient. Patient understands German, A/O x4. [id number] OR staff at bedside wheeled to OR via bed, on RA.
[2020-02-10] MEDS ORDERED: HYDROMORPHONE INJ 2 MG/ML DISP.SYRIN ONE (20:45)
[2020-02-10] MEDS ORDERED: FAMOTIDINE/PF INJ 20 MG/2 ML VIAL IV ONE (20:45)
[2020-02-10] MEDS: INSULIN GLARGINE, 100 UNIT/ML CARTRIDGE SQ SCH (22:37)
[2020-02-10] MEDS: *INSULIN REGULAR(HUMULIN R)HUM 100 UNIT/ML VIAL SQ PRN (22:38)
[2020-02-11] MEDS: IV NS 0.9% 1,000 ML IV PRN ×3 (00:23→17:18)
[2020-02-11] MEDS: HYDROCODONE/APAP 10/325MG 1 EA TABLET PO PRN ×2 (00:23→19:10)
[2020-02-11 04:21] VITALS: BP 130/74
[2020-02-11] MEDS: MEROPENEM 500 MG in IV NS 0.9% 50 ML IV SCH ×2 (05:27→17:17)
--- NOTE | 2020-02-11 06:23 | NUR ---
RN NOTES Patient awake on bed, resting. Pain managed with [place] 5mg, noted minimally effective. Patient noted limited amount of sleep throughout the shift and claimed always in severe pain. Also, per slab lifting engineer, patient is hard stick, with difficulty getting blood for labs. All nursing needs attended, due meds given as ordered. Pt refused beddings change, soaked with betadine. Wound culture at scrotum collected, picked up by the slab lifting engineer at this time. Scrotum covered with gauze soaked in Dakins. Kept on bed bed comfortably. Repositioned as patient tolerated. Endorsed.
[2020-02-11 06:55] LABS: BASOPHILS # (AUTO) 0.1 /CMM (0.0-0.2); BASOPHILS % (AUTO) 0.8 % (0.0-2.0); EOSINOPHILS % (AUTO) 0.7 % (0.0-6.0); HEMATOCRIT 34 % (39-51); HEMOGLOBIN 10.9 g/dL (13.5-17.5); LYMPHOCYTES # (AUTO) 1.6 /CMM (0.8-4.8); LYMPHOCYTES % (AUTO) 9.3 % (20.0-44.0); MEAN CORPUSCULAR HGB CONC 32 g/dl (31.0-36.0); MEAN CORPUSCULAR VOLUME 92 fL (80-96); MONOCYTES # (AUTO) 1.1 /CMM (0.1-1.30); MONOCYTES % (AUTO) 6.3 % (2.0-12.0); NEUTROPHILS # (AUTO) 14.2 /CMM (1.8-8.9); NEUTROPHILS % (AUTO) 82.9 % (43.0-81.0); PLATELET COUNT (AUTO) 324 /CMM (150-450); RED BLOOD CELL COUNT(AUTO) 3.68 MIL/uL (4.5-6.0); WHITE BLOOD COUNT (AUTO) 17.1 K/uL (4.3-11.0)
[2020-02-11 06:57] LABS: ALBUMIN 1.7 g/dL (3.4-5.0); BILIRUBIN,TOTAL 0.6 mg/dL (0.2-1.0); CALCIUM, SERUM 7.1 mg/dL (8.5-10.1); CREATININE 4.2 mg/dL (0.6-1.3); MAGNESIUM 2.6 mg/dL (1.8-2.4); PHOSPHORUS 6.9 mg/dL (2.5-4.9); POTASSIUM 5.6 mmol/L (3.5-5.1); TOTAL PROTEIN, SERUM 6.2 g/dL (6.4-8.2)
[2020-02-11] MEDS: INSULIN REGULAR, HUMAN 100 UNIT/ML 3 ML VIAL SQ PRN ×2 (07:25→16:43)
[2020-02-11] MEDS: BLOOD SUGAR DIAGNOSTIC 1 EACH STRIP VI SCH ×4 (07:26→21:05)
--- NOTE | 2020-02-11 07:31 | NUR ---
rn notes patient received on room air, no sob noted, patient denies pain at this time and has a BS of 160 and 2 unit insulin given. denson remains in tact and is draining. R thigh surgical wound not to be touched at this time, Dr. Call to see it first. Bed at the lowest setting, call light within reach, side rails up x2.
[2020-02-11] MEDS: METOPROLOL TARTRATE 25 MG TABLET PO SCH ×2 (08:43→16:47)
[2020-02-11] MEDS: LINEZOLID 600 MG TABLET PO SCH ×2 (08:43→20:57)
[2020-02-11] MEDS: ARIPIPRAZOLE 5 MG TABLET PO SCH (08:43)
--- NOTE | 2020-02-11 08:46 | NUR ---
SLOT SUPERVISOR RIGHT GROIN/THIGH/HIP WOUND TREATMENT ORDERS CLARIFIED WITH SURGEON DR BERNARDO SHORT. PLEASE KEEP POST OP DRESSING IN PLACE UNTIL SEEN BY SURGEON DR SHORT. PLEASE SEE TREATMENT ORDERS. CONTINUE SCROTAL WOUND TREATMENT ORDERS CURRENTLY IN PLACE BY SURGEON DR KAUR. DISCUSSED WITH NURSING STAFF.
[2020-02-11] MEDS: DAKINS QUARTER STRENGTH (0.125%) 480 ML BOTTLE TOP SCH ×3 (08:47→16:45)
[2020-02-11] MEDS: HEPARIN SODIUM, PORCINE 5000 UNITS/1 ML VIAL SQ SCH ×2 (08:47→20:58)
[2020-02-11] MEDS: Z GUARD REMEDY 2 OZ OINT TP SCH (08:48)
[2020-02-11] MEDS ORDERED: SODIUM POLYSTYRENE SULFONATE 15 G/60 ML BOTTLE PO ONE (09:00)
[2020-02-11] MEDS: *INSULIN REGULAR(HUMULIN R)HUM 100 UNIT/ML VIAL SQ PRN ×2 (11:26→21:07)
--- NOTE | 2020-02-11 17:51 | NUR ---
rn notes patient remains on room air, a/o x4 and speaks palestinian and welsh. denson remains in place and is draining well. scrotum has stuffing inside and is covered with gauze. BS checked and insulin coverage given with no s/s of hypotension noted. Plan is to not touch right hip thigh wound and wait for Dr. Call to do it. Bed at the lowest setting, call light within reach, side rails up x2.
[2020-02-11] MEDS: MICAFUNGIN SODIUM 100 MG in IV NS 0.9% 100 ML IV SCH (18:24)
[2020-02-11 20:49] VITALS: BP 128/72
[2020-02-11] MEDS: ACETAMINOPHEN 325 MG TABLET PO PRN (20:56)
[2020-02-11] MEDS: HYDROCODONE/APAP 5/325MG 1 EACH TABLET PO PRN (20:57)
[2020-02-11] MEDS ORDERED: INSULIN GLARGINE, 100 UNIT/ML CARTRIDGE SQ SCH (22:00)
[2020-02-12] MEDS: IV NS 0.9% 1,000 ML IV PRN (05:00)
[2020-02-12] MEDS: MEROPENEM 500 MG in IV NS 0.9% 50 ML IV SCH ×2 (06:08→17:13)
[2020-02-12] MEDS: BLOOD SUGAR DIAGNOSTIC 1 EACH STRIP VI SCH ×4 (06:08→22:45)
[2020-02-12] MEDS: INSULIN REGULAR, HUMAN 100 UNIT/ML 3 ML VIAL SQ PRN ×2 (06:16→16:49)
--- NOTE | 2020-02-12 06:50 | NUR ---
MS RN NOTES AWAKE & RESPONSIVE. NOT IN ANY DISTRESS. NO SOB NOTED. DENIES ANY PAIN OR DISCOMFORT AT THIS TIME. WITH IVF INFUSING WELL. WITH F/C DRAINING TO YELLOWISH OUTPUT MODERATE IN AMOUNT. AM CARE DONE. MONITORED ACCORDINGLY. CALL LIGHT WITHIN REACH. BED IN LOWEST POSITION. SR UP X 2 FOR SAFETY. WILL ENDORSE TO NEXT SHIFT.
--- NOTE | 2020-02-12 07:14 | NUR ---
rn notes patient received on room air, no sob noted, denies pain at this time. A/O x4 at this tiem and speaks greek and indonesian. NS @ 75 ml per hour R AC 18 gauge and R hand 22 gauge. bed at the lowest setting, call light within reach, side rails up x2.
[2020-02-12 07:33] LABS: ALBUMIN 1.7 g/dL (3.4-5.0); BILIRUBIN,TOTAL 0.4 mg/dL (0.2-1.0); CREATININE 3.8 mg/dL (0.6-1.3); MAGNESIUM 2.4 mg/dL (1.8-2.4); PHOSPHORUS 5.9 mg/dL (2.5-4.9); POTASSIUM 4.3 mmol/L (3.5-5.1); TOTAL PROTEIN, SERUM 6.2 g/dL (6.4-8.2)
[2020-02-12 07:35] LABS: BASOPHILS # (AUTO) 0.1 /CMM (0.0-0.2); BASOPHILS % (AUTO) 0.5 % (0.0-2.0); EOSINOPHILS % (AUTO) 1.6 % (0.0-6.0); HEMATOCRIT 33 % (39-51); HEMOGLOBIN 10.9 g/dL (13.5-17.5); LYMPHOCYTES # (AUTO) 1.4 /CMM (0.8-4.8); LYMPHOCYTES % (AUTO) 10.6 % (20.0-44.0); MEAN CORPUSCULAR HGB CONC 33 g/dl (31.0-36.0); MEAN CORPUSCULAR VOLUME 91 fL (80-96); MONOCYTES % (AUTO) 7.5 % (2.0-12.0); NEUTROPHILS # (AUTO) 10.6 /CMM (1.8-8.9); NEUTROPHILS % (AUTO) 79.8 % (43.0-81.0); PLATELET COUNT (AUTO) 368 /CMM (150-450); RED BLOOD CELL COUNT(AUTO) 3.59 MIL/uL (4.5-6.0); WHITE BLOOD COUNT (AUTO) 13.2 K/uL (4.3-11.0)
[2020-02-12 08:00] VITALS: BP 139/72
[2020-02-12] MEDS: ARIPIPRAZOLE 5 MG TABLET PO SCH (08:22)
[2020-02-12] MEDS: LINEZOLID 600 MG TABLET PO SCH ×2 (08:23→22:39)
[2020-02-12] MEDS: METOPROLOL TARTRATE 25 MG TABLET PO SCH ×2 (08:23→16:45)
[2020-02-12] MEDS: HEPARIN SODIUM, PORCINE 5000 UNITS/1 ML VIAL SQ SCH ×2 (08:24→22:42)
[2020-02-12] MEDS: Z GUARD REMEDY 2 OZ OINT TP SCH (08:25)
[2020-02-12] MEDS: DAKINS QUARTER STRENGTH (0.125%) 480 ML BOTTLE TOP SCH ×3 (08:25→16:45)
--- NOTE | 2020-02-12 10:16 | NUR ---
WOUND CARE FOLLOW UP: PT REFUSED TO HAVE DRESSING CHANGED AT THIS TIME. CLARIFIED WOUND ORDERS WITH [facility] DISCUSSED WITH NURSING STAFF. WILL SEE PRN.
[2020-02-12] MEDS: *INSULIN REGULAR(HUMULIN R)HUM 100 UNIT/ML VIAL SQ PRN ×2 (11:35→22:44)
[2020-02-12 16:00] VITALS: BP 133/70
--- NOTE | 2020-02-12 17:28 | NUR ---
rn notes patient remains on room air, no sob noted, a/o x4 and denies pain at this time. Dressing change done to both hip and scrotum area. F/C remains in place and is draining well. Plan is to move patient to a rehab or SNF tomorrow. Bed at the lowest setting, call light within reach, side rails up x2.
[2020-02-12] MEDS: MICAFUNGIN SODIUM 100 MG in IV NS 0.9% 100 ML IV SCH (17:44)
[2020-02-12 20:00] VITALS: BP 120/70
--- NOTE | 2020-02-12 20:21 | NUR ---
MS2/RN ON INITIAL ROUNDING AT 1930, PATIENT WAS AWAKE, ALERT, ORIENTED, BOWEL MOVEMENT WAS NOTED, CLEANED AND MADE DRY AND COMFORTABLE, NO SIGNS OF DISTRESS NOTED, REPOSITIONED TO COMFORT, WILL MONITOR.
[2020-02-12] MEDS: INSULIN GLARGINE, 100 UNIT/ML CARTRIDGE SQ SCH (22:43)
--- NOTE | 2020-02-13 00:57 | NUR ---
MS2/RN PATIENT IS SLEEPING AT THIS TIME, APPEAR COMFORTABLE, NO SIGNS OF DISTRESS NOTED, CALL LIGHT IN REACH. WILL CONTINUE TO MONITOR.
[2020-02-13] MEDS: HYDROCODONE/APAP 5/325MG 1 EACH TABLET PO PRN ×3 (02:07→17:19)
[2020-02-13] MEDS: IV NS 0.9% 1,000 ML IV PRN ×3 (02:16→18:50)
[2020-02-13] MEDS: BLOOD SUGAR DIAGNOSTIC 1 EACH STRIP VI SCH ×4 (06:32→21:30)
[2020-02-13] MEDS: MEROPENEM 500 MG in IV NS 0.9% 50 ML IV SCH ×2 (06:32→17:21)
[2020-02-13] MEDS: INSULIN REGULAR, HUMAN 100 UNIT/ML 3 ML VIAL SQ PRN ×2 (06:34→13:21)
--- NOTE | 2020-02-13 08:00 | NUR ---
RN NOTES RECEIVED PATIENT IN THE BED SLEEPING, NO ACUTE RESPIRATORY DISTRESS, NO SOB, PATIENT AROUSE WHEN CALLED NAME OR TOUCHED. INFUSING NS AT 125 ML/HR INTACT. SHIPMAN CATHETER DRAINING LIGHT YELLOW OUTPUT. V/S STABLE. CALL LIGHT WITHIN TO REACH, CONTINUED MONITORING.
[2020-02-13 08:10] VITALS: BP 137/78
[2020-02-13 08:23] LABS: BASOPHILS # (AUTO) 0.1 /CMM (0.0-0.2); BASOPHILS % (AUTO) 0.7 % (0.0-2.0); EOSINOPHILS % (AUTO) 1.3 % (0.0-6.0); HEMATOCRIT 31 % (39-51); HEMOGLOBIN 9.8 g/dL (13.5-17.5); LYMPHOCYTES # (AUTO) 1.6 /CMM (0.8-4.8); LYMPHOCYTES % (AUTO) 13.6 % (20.0-44.0); MEAN CORPUSCULAR HGB CONC 32 g/dl (31.0-36.0); MEAN CORPUSCULAR VOLUME 92 fL (80-96); MONOCYTES # (AUTO) 0.9 /CMM (0.1-1.30); NEUTROPHILS # (AUTO) 8.8 /CMM (1.8-8.9); NEUTROPHILS % (AUTO) 76.4 % (43.0-81.0); PLATELET COUNT (AUTO) 344 /CMM (150-450); RED BLOOD CELL COUNT(AUTO) 3.31 MIL/uL (4.5-6.0); WHITE BLOOD COUNT (AUTO) 11.5 K/uL (4.3-11.0)
[2020-02-13 08:31] LABS: CALCIUM, SERUM 6.7 mg/dL (8.5-10.1); CREATININE 3.2 mg/dL (0.6-1.3); POTASSIUM 4.4 mmol/L (3.5-5.1)
[2020-02-13] MEDS ORDERED: METO25TA20 PO (08:46)
[2020-02-13] MEDS ORDERED: MERO500P IV (08:46)
[2020-02-13] MEDS ORDERED: Insulin Glargine,Hum SQ (08:46)
[2020-02-13] MEDS ORDERED: HEPA50008 SQ (08:46)
[2020-02-13] MEDS ORDERED: CLIN900P10 IV (08:46)
[2020-02-13] MEDS ORDERED: ARIP5TAB10 PO (08:46)
[2020-02-13] MEDS ORDERED: FLUC200T PO (08:46)
[2020-02-13] MEDS: HEPARIN SODIUM, PORCINE 5000 UNITS/1 ML VIAL SQ SCH ×2 (09:59→21:29)
[2020-02-13] MEDS: LINEZOLID 600 MG TABLET PO SCH ×2 (10:00→21:27)
[2020-02-13] MEDS: ARIPIPRAZOLE 5 MG TABLET PO SCH (10:00)
[2020-02-13] MEDS: Z GUARD REMEDY 2 OZ OINT TP SCH (10:01)
[2020-02-13] MEDS: METOPROLOL TARTRATE 25 MG TABLET PO SCH ×2 (10:01→17:20)
[2020-02-13] MEDS: DAKINS QUARTER STRENGTH (0.125%) 480 ML BOTTLE TOP SCH ×3 (10:02→17:21)
--- NOTE | 2020-02-13 10:42 | NUR ---
RN NOTES ADMINISTERED NARCO 5/325 MG PO OPRN FOR GENERALIZED PAIN 02/19 PER PATIENT REQUEST, V/S TAKEN BP 137/78, P-64, R-19. PATIENT REFUSED PT TO AMBULATE BECAUSE OF PAIN. ALSO ASKING F/C TO BE REMOVED. CALL LIGHT WITHIN TO REACH. CONTINUED MONITORING.
--- NOTE | 2020-02-13 13:24 | NUR ---
RN NOTES BS-167 MG/DL COVERAGE GIVEN, MEDICATION WERE ADMINISTERED FOR PAIN EFFECTIVE, PATIENT REFUSED DRESSING TO CHANGE AT THIS TIME, EXPLAINED PATIENT IMPORTANT OF HEALING, BUT PATIENT STATED "PLEASE LATER". CONTINUED MONITORING.
[2020-02-13 16:02] VITALS: BP 137/75
--- NOTE | 2020-02-13 17:19 | NUR ---
RN NOTES ADMINISTERED NARCO 5/325 MG PO PRN FOR PAIN 03/22 PER PATIENT REQUEST, AND SCHEDULED MEDICATION. STARTED MERREM 100 ML/HR ON RIGHT AC AREA.
--- NOTE | 2020-02-13 18:30 | NUR ---
rn notes medication were administered for pain effective, infusing ns at 125 ml/hr intact, administered scheduled medication, bs-130 mg/dl, patient tolerated dinner 50%, dressing changed, assist patient turn and reposition q 2 hr. call light within to reach. endorsed oncoming nurse follow plan of care.
[2020-02-13] MEDS: MICAFUNGIN SODIUM 100 MG in IV NS 0.9% 100 ML IV SCH (18:43)
--- NOTE | 2020-02-13 19:20 | NUR ---
RN medsurg opening notes Received Pt from morning nurse. Pt is resting in bed comfortably. Pt is alert and orientedX4. Respiration is normal in room air. No SOB. No S/S of distress noted. IV sites at RAC #18 is clean, intact and infusing well mycamine @ 100ml/hr. IV sites at R hand# 22 is clean, intact and SL. Ruiz cath is intact, patent and draining clear yellow urine. Safety precautions is maintained. Bed at low position, brakes locked, side rails upX3, bed alarm is on and call light is within reach. Will continue to monitor.
[2020-02-13 20:00] VITALS: BP 131/73
[2020-02-13 20:02] VITALS: BP 131/73
[2020-02-13] MEDS: *INSULIN REGULAR(HUMULIN R)HUM 100 UNIT/ML VIAL SQ PRN (21:33)
[2020-02-13] MEDS: INSULIN GLARGINE, 100 UNIT/ML CARTRIDGE SQ SCH (21:34)
[2020-02-14] MEDS: IV NS 0.9% 1,000 ML IV PRN (03:06)
--- NOTE | 2020-02-14 03:43 | NUR ---
RENATA centeno notes Pt refused to have wound care dressing change and assessment. Offered multiple times. Pt keep refusing. Pt stated " What for? Do in the morning between 7 am or 8 am! Made aware risks and benefits. Pt keep refusing. Will continue to monitor.
[2020-02-14] MEDS: MEROPENEM 500 MG in IV NS 0.9% 50 ML IV SCH ×2 (05:04→17:21)
--- NOTE | 2020-02-14 05:27 | NUR ---
RENATA centeno notes Pt refused to be change, and wound care treatment. Pt stated "In two hours!" Made aware risks and benefits. Pt keep refusing. Offered several times thru out the shift. Will continue to monitor.
[2020-02-14] MEDS: BLOOD SUGAR DIAGNOSTIC 1 EACH STRIP VI SCH ×3 (06:32→16:35)
[2020-02-14] MEDS: INSULIN REGULAR, HUMAN 100 UNIT/ML 3 ML VIAL SQ PRN ×2 (06:34→11:40)
--- NOTE | 2020-02-14 07:00 | NUR ---
RN medsurg closing notes Pt is resting in bed comfortably. Pt is alert and orientedX4. Respiration is normal in room air. No SOB. No S/S of distress noted. VS is stable. Routine meds were given as ordered. IV sites at RAC #18 is clean, intact and infusing well NS @ 125 ml/hr. IV sites at R hand# 22 is clean, intact and SL. Ruiz cath is intact, patent and draining clear yellow urine 2200ml. Pt refused to be change and wound care. Made aware risks and benefits. Pt keep refusing. Offered several times thru out the shift. Safety precautions is maintained. Bed at low position, brakes locked, side rails upX3, bed alarm is on and call light is within reach. Will endorse to morning nurse for ELVIS.
--- NOTE | 2020-02-14 07:26 | NUR ---
MS RN OPENING NOTES RECEIVED PATIENT IN BED SLEEPING, RESTING COMFORTABLY. PATIENT IN NO ACUTE DISTRESS. NO SOB NOTED. PATIENT BREATHING IS EVEN AND UNLABORED. PATIENT BED ALARM IS ON. SAFETY PRECAUTIONS IN PLACE. PATIENT BED IS LOCKED AND IN LOWEST POSITION. CALL LIGHT WITHIN REACH. WILL CONTINUE TO MONITOR.
[2020-02-14 08:00] VITALS: BP 139/75
[2020-02-14 08:10] LABS: CALCIUM, SERUM 7.2 mg/dL (8.5-10.1); CREATININE 2.8 mg/dL (0.6-1.3); POTASSIUM 4.4 mmol/L (3.5-5.1)
[2020-02-14] MEDS: HEPARIN SODIUM, PORCINE 5000 UNITS/1 ML VIAL SQ SCH (08:18)
[2020-02-14] MEDS: METOPROLOL TARTRATE 25 MG TABLET PO SCH ×2 (08:18→16:38)
[2020-02-14] MEDS: LINEZOLID 600 MG TABLET PO SCH (08:18)
[2020-02-14] MEDS: ARIPIPRAZOLE 5 MG TABLET PO SCH (08:18)
[2020-02-14] MEDS: Z GUARD REMEDY 2 OZ OINT TP SCH (08:19)
[2020-02-14] MEDS: DAKINS QUARTER STRENGTH (0.125%) 480 ML BOTTLE TOP SCH ×3 (08:19→16:35)
[2020-02-14 16:00] VITALS: BP 132/72
--- NOTE | 2020-02-14 16:35 | NUR ---
MS RN NOTE PATIENT BLOOD SUGAR IS 143. PATIENT REFUSING 2 UNITS REGULAR INSULIN PRN ORDERED. EDUCATED RISKS VS BENEFITS. PATIENT CONTINUED TO REFUSE.
[2020-02-14 16:38] VITALS: BP 132/72
[2020-02-14] MEDS: MICAFUNGIN SODIUM 100 MG in IV NS 0.9% 100 ML IV SCH (18:25)
--- NOTE | 2020-02-14 19:21 | NUR ---
MS SERVICE DISMANTLER NOTE PATIENT MEDICALLY CLEARED FOR DISCHARGE. PATIENT IN NO ACUTE DISTRESS. NO SOB NOTED. PATIENT BREATHING IS EVEN AND UNLABORED. ID BANDS REMOVED. REPORT GIVEN TO EDDIE YANEZ AT [facility]. PATIENT WITH SHIPMAN CATHETER PATENT AND INTACT. WOUND CARE PROVIDED ORDERED. DC INSTRUCTIONS PROVIDED. INSTRUCTED ON PROPER DIABETIC INSULIN CONTROL. PATIENT VERBALIZED UNDERSTANDING. PATIENT KEPT CLEAN, DRY AND COMFORTABLE THROUGHOUT SHIFT. PATIENT NEEDS AND CONCERNS ADDRESSED. PATIENT SIGNED BELONGINGS LIST AND HAS BELONGINGS WITH HIM. PATIENT SKIN ASSESSED. NO NEW SKIN BREAKDOWN NOTED. PATIENT WENT WITH TWO AUTOMATIC STEEL TIE ADJUSTER BACK TO SNF BY AMBULANCE. MD AWARE OF DISCHARGE.
== END 2020-02-14 19:00 | DRG 720 ==
LOC: ER 19:03 → ICU 22:27 → TELE1 02-04 11:00 → MEDSG1 02-04 11:08 → MEDSG2 02-05 06:43
PROVIDERS: ADMIT Internal Medicine; ATTEND Internal Medicine
PROC: 0VB50ZZ Excision of Scrotum, Open Approach (ICD-10-PCS; principal; 2020-02-06)
PROC: 0JBL0ZZ Excision of Right Upper Leg Subcutaneous Tissue and Fascia, Open Approach (ICD-10-PCS; 2020-02-10)
DX: A41.9 Sepsis, unspecified organism (principal); E11.00 Type 2 diabetes mellitus with hyperosmolarity without nonketotic hyperglycemic-hyperosmolar coma (NKHHC); M72.6 Necrotizing fasciitis; N17.0 Acute kidney failure with tubular necrosis; E87.2 Acidosis; J18.9 Pneumonia, unspecified organism; E86.0 Dehydration; N49.3 Fournier gangrene; N39.0 Urinary tract infection, site not specified; L03.115 Cellulitis of right lower limb; N49.2 Inflammatory disorders of scrotum; E11.65 Type 2 diabetes mellitus with hyperglycemia; D64.9 Anemia, unspecified; E78.5 Hyperlipidemia, unspecified; E86.1 Hypovolemia; E87.1 Hypo-osmolality and hyponatremia; E87.5 Hyperkalemia; I10 Essential (primary) hypertension; F29 Unspecified psychosis not due to a substance or known physiological condition; L53.9 Erythematous condition, unspecified; Z79.4 Long term (current) use of insulin
CPT/HCPCS: 36415; 71045-TC; 73700-TC; 74178; 76770-TC; 76870-TC; 80048-TC; 80053-TC; 80202-TC; 81000-TC; 82248-TC; 82550-TC; 82570-TC; 82728-TC; 82962-TC; 83605-TC; 83615-TC; 83735-TC; 83880; 83935-TC; 83970; 84100-TC; 84155; 84165; 84300-TC; 84443-TC; 84484-TC; 85025-TC; 85378-TC; 86140-TC; 86850-TC; 87040-TC; 87070-TC; 87075-TC; 87081-TC; 87086-TC; 88305-TC; 97110-TC; 97530-TC; A4216; A4217; A6253; A6403; A6407; G0378; J0330; J0690; J0696; J1170; J1580; J1644; J1650; J1815; J1956; J2185; J2248; J2250; J2405; J2543; J2704; J2765; J3010; J3370; J3490; J7030; J7040; J7050; J7060; Q9967; U0003-CS

== ENCOUNTER 2020-02-18 12:42 | Outpatient (CLI) | payer OTHER ==
[~2020-02-18 12:42] MED LIST: ARIP5TAB10 PO; ATOR20TA; CLIN900P10 IV; FLUC200T PO; HEPA50008 SQ; INSU100I26 SQ; Insulin Glargine,Hum SQ; MERO500P IV; METO25TA20 PO; OMEP20CA15 PO; OXYB5TAB16 MT
== END 2020-02-18 23:59 | disposition home or self-care (01) ==
LOC: ER 12:42
PROVIDERS: ATTEND Internal Medicine
DX: Z45.2 Encounter for adjustment and management of vascular access device (principal)
CPT/HCPCS: 36410; C1751

== ENCOUNTER 2022-04-18 21:09 | Inpatient (IN) | payer MEDICAID, OTHER ==
[~2022-04-18] VITALS: Ht 180.3 cm; Wt 106.6 kg
[~2022-04-18 21:09] MED LIST changes: -ATOR20TA; +ATOR20TA PO; -OXYB5TAB16 MT; +OXYB5TAB16 PO
--- NOTE | 2022-04-18 21:13 | NUR ---
PATIENT [id number] FROM HOME C/O RIGHT SIDED WEAKNESS PER ROOMMATE. LAST WELL KNOW AT 7PM. PATIENT IS A/O X 3, RR EVEN AND UNLABORED, NO SOB NOTED. PATIENT TAKEN TO ER BED 07. PATIENT CONNECTED TO CARDIAC AND POX MONITOR. TELE NEURO MONITOR AT BEDSIDE
--- NOTE | 2022-04-18 21:14 | NUR ---
CODE STROKE CALLED ER BED 07
--- NOTE | 2022-04-18 21:22 | NUR ---
PT TAKEN TO CT VIA [facility]
--- NOTE | 2022-04-18 21:31 | NUR ---
PT RETURNED TO ER BED [address]
--- NOTE | 2022-04-18 21:38 | NUR ---
PT ON TELE NEURO HEALTH CALL WITH DR. CARRASQUILLO NEUROLOGIST .
[2022-04-18] MEDS ORDERED: IOHEXOL-350 100 ML VIAL IV ONE (21:44)
[2022-04-18] MEDS ORDERED: CT SWABBABLE VALVE TRANS SET 1 EA INFUS.SET MC ONE (21:44)
[2022-04-18] MEDS ORDERED: IV NS 0.9% 250 ML IV ONE (21:45)
--- NOTE | 2022-04-18 21:45 | NUR ---
COVID ANTIGEN SWAB COLLECTED AND SENT TO LAB
[2022-04-18 22:08] LABS: BASOPHILS % (AUTO) 0.1 % (0.0-2.0); EOSINOPHILS % (AUTO) 0.1 % (0.0-6.0); HEMATOCRIT 40 % (39-51); HEMOGLOBIN 13.3 g/dL (13.5-17.5); LYMPHOCYTES # (AUTO) 1.5 K/uL (0.8-4.8); LYMPHOCYTES % (AUTO) 11.9 % (20.0-44.0); MEAN CORPUSCULAR HGB CONC 34 g/dl (31.0-36.0); MEAN CORPUSCULAR VOLUME 83 fL (80-96); MONOCYTES # (AUTO) 0.7 K/uL (0.1-1.30); MONOCYTES % (AUTO) 5.7 % (2.0-12.0); NEUTROPHILS # (AUTO) 10.4 K/uL (1.8-8.9); NEUTROPHILS % (AUTO) 82.2 % (43.0-81.0); PLATELET COUNT (AUTO) 196 K/uL (150-450); RED BLOOD CELL COUNT(AUTO) 4.78 MIL/uL (4.5-6.0); WHITE BLOOD COUNT (AUTO) 12.6 K/uL (4.3-11.0)
[2022-04-18 22:20] LABS: CALCIUM, SERUM 7.7 mg/dL (8.5-10.1); CARBON DIOXIDE 18 mmol/L (21-32); GLUCOSE 125 mg/dL (74-106); UREA NITROGEN, BLOOD 7 mg/dL (7-18)
--- NOTE | 2022-04-18 22:21 | NUR ---
PT TO CT ON [facility]
[2022-04-18 22:37] LABS: POTASSIUM 3.9 mmol/L (3.5-5.1)
[2022-04-18 22:43] LABS: CHLORIDE 77 mmol/L (98-107); SODIUM SERUM 108 mmol/L (136-145)
--- NOTE | 2022-04-18 22:43 | NUR ---
Critical lab Na 108
[2022-04-18 22:45] LABS: ALCOHOL, BLOOD < 3 mg/dL (0-0)
--- NOTE | 2022-04-18 23:46 | NUR ---
SEIZURE PRECAUTIONS IN PLACE
[2022-04-19] VITALS (39 sets, daily range): BP systolic 118–145; BP diastolic 59–96
[2022-04-19] MEDS ORDERED: IV Sodium Chloride 3% 500 ML 500 ML IV ONE
--- NOTE | 2022-04-19 00:10 | NUR ---
3% NS STARTED UNABLE TO SIGN OFF IN EMAR.
--- NOTE | 2022-04-19 00:27 | NUR ---
VERBAL AUTH TO STAY RECEIVED FROM ANISA MICROCHIP SPECIALIST.
[2022-04-19] MEDS ORDERED: IV NS 0.9% 1,000 ML IV ONE ×2 (00:30)
[2022-04-19] MEDS ORDERED: DEXTROSE 50%-WATER 50 ML DISP.SYRIN IV PRN (00:30)
[2022-04-19] MEDS ORDERED: *INSULIN REGULAR(HUMULIN R)HUM 100 UNIT/ML VIAL SQ PRN (00:30)
[2022-04-19] MEDS ORDERED: hydrALAZINE HCL 10 MG TABLET PO PRN (00:30)
[2022-04-19] MEDS ORDERED: INSULIN REGULAR, HUMAN 100 UNIT/ML 3 ML VIAL SQ PRN (00:30)
--- NOTE | 2022-04-19 00:36 | NUR ---
URINE COLLECTED AND SENT TO LAB
[2022-04-19 00:40] LABS: BILIRUBIN,URINE NEGATIVE (NEGATIVE); COLOR,URINE YELLOW (YELLOW); LEUKOCYTE ESTERASE ,URINE NEGATIVE (NEGATIVE); NITRITE, URINE NEGATIVE (NEGATIVE); PH,URINE 6.5 (5.0-8.0); PROTEIN,URINE 30 mg/dl (NEGATIVE); UGLUCOSE NEGATIVE (NEGATIVE); UROBILINOGEN,URINE 0.2 EU/dL (0.2)
--- NOTE | 2022-04-19 00:40 | NUR ---
room 254
--- NOTE | 2022-04-19 01:15 | NUR ---
RN/ICU-ADMITTED THIS 47 Y/O MALE FROM ER BY [facility] PER ACLS PROTOCOL, ACCOMPANIED BY 2 ER STAFF MEMBERS. DX.HYPONATREMIA. ROUTINE ICU ADMISSION CARE INITIATED. ON ASSESSMENT. PT. VERY LETHARGIC, AROUSABLE TO SPEECH. ORIENTED TO NAME, PERSON AND YEAR.FOLLOWS SIMPLE COMMANDS. PUPILS ARE BRISKLY REACTIVE TO LIGHT AT 2.0 MM. EXTREMITIES ARE WNL. AFEBRILE. DENIES PAIN, NOT IN ANY DISTRESS. 97% SATURATION ON ROOM AIR.PT. IS A FULL CODE. WILL CONTINUE TO MONITOR SODIUM LEVELS Q 2 HRS. AND WILL NOTIFY MD IF NA LEVEL DROPS BY .5 PER HR. PER MD ORDER. Addendum: 04/19/22 at 0312 by LALO SILVESTRE RN CORRECTION: WILL NOTIFY MD IF NA LEVEL INCREASED BY .5 PER HR.
--- NOTE | 2022-04-19 01:17 | NUR ---
patient transferred to 254 via acls
[2022-04-19] MEDS: LISINOPRIL (20MG) 20 MG TABLET PO SCH ×2 (01:34→08:42)
--- NOTE | 2022-04-19 03:15 | NUR ---
R/ICU- RESULT OF NA IN -116, MESSAGE LEFT FOR DR. HOWARD.
[2022-04-19] MEDS ORDERED: IV NS 0.9% 1,000 ML IV PRN (07:00)
[2022-04-19] MEDS: IV NS 0.9% 1,000 ML IV PRN ×3 (07:00→23:06)
--- NOTE | 2022-04-19 08:00 | NUR ---
rn notes received patient a/ox3 Tajik male room air no acute respiratory distress. refused pian, bs82 mg/dl tolerated breakfast well, due medication administered. patient noted he feel sleepy, at home they do not hava a AC. patient using urinal seen Dr Ann. iv access on LAC infusing NS @100 ml/hr intact. get Ns -119 . aware of.
[2022-04-19] MEDS: BLOOD SUGAR DIAGNOSTIC 1 EACH STRIP VI SCH ×4 (08:01→21:40)
[2022-04-19] MEDS: ARIPIPRAZOLE 5 MG TABLET PO SCH (08:40)
[2022-04-19] MEDS: OXYBUTYNIN CHLORIDE 5 MG TABLET PO SCH ×2 (08:41→17:36)
[2022-04-19] MEDS: PANTOPRAZOLE 40 MG TABLET.DR PO SCH ×2 (08:41→17:36)
[2022-04-19] MEDS: METOPROLOL TARTRATE 25 MG TABLET PO SCH ×2 (08:42→17:36)
[2022-04-19] MEDS: HEPARIN SODIUM, PORCINE 5000 UNITS/1 ML VIAL SQ SCH ×2 (08:47→21:26)
[2022-04-19] MEDS: NICOTINE PATCH (21MG) 21 MG PATCH.TD24 TD SCH (08:50)
--- NOTE | 2022-04-19 11:00 | NUR ---
RN NOTES GET ORDER TO TRANSFER PATIENT TO THE [facility]. WAITING AVAILABLE BED.
[2022-04-19] MEDS ORDERED: IBUP-1490 PO (14:40)
[2022-04-19] MEDS ORDERED: METF-442 PO (14:40)
[2022-04-19] MEDS ORDERED: SITA50TA PO (14:40)
[2022-04-19] MEDS ORDERED: LISI-768 PO (14:40)
[2022-04-19] MEDS ORDERED: ESCI10TA PO (14:40)
[2022-04-19] MEDS ORDERED: ERGO500093 PO (14:40)
[2022-04-19] MEDS ORDERED: ASPI-1420 PO (14:40)
--- NOTE | 2022-04-19 18:53 | NUR ---
rn notes transferred patient to the 306 bed 1 tele unit. Bs-120mg/dl, scheduled medication administered, patient awake, stable refused pain, room air. belonging with the patient. endorsed oncoming nurse andrea.
--- NOTE | 2022-04-19 19:45 | NUR ---
WINCH TRUCK OPERATOR OPENING NOTE PATIENT TRANSFERRED FROM ICU, ALERT/ORIENTED X 3, PT ABLE TO MAKE NEEDS KNOWN. PATIENT STABLE ON RA, NO S/S OF DISTRESS OR SOB NOTED, BREATHING EVEN AND UNLABORED. PATIENT ON EXTERNAL PETROLEUM GEOLOGY FACULTY MEMBER READING SINUS RHYTHM, HR: 80. LAC #18G IV ACCESS LEAKING, WILL REMOVED, RAC #18G IV ACCESS INTACT AND INFUSING NS @ 100 ML/HR. SAFETY MEASURES IN PLACE: CALL LIGHT WITHIN REACH, SIDE RAILS UP X 2, BED LOCKED IN LOWEST POSITION, BED ALARM ON. WILL CONTINUE TO MONITOR PATIENT
[2022-04-19] MEDS ORDERED: INSULIN GLARGINE, 100 UNIT/ML CARTRIDGE SQ SCH (22:00)
[2022-04-20 00:02] VITALS: BP 130/79
[2022-04-20 04:55] LABS: BASOPHILS % (AUTO) 0.3 % (0.0-2.0); EOSINOPHILS % (AUTO) 0.4 % (0.0-6.0); HEMATOCRIT 42 % (39-51); HEMOGLOBIN 13.7 g/dL (13.5-17.5); LYMPHOCYTES # (AUTO) 1.4 K/uL (0.8-4.8); LYMPHOCYTES % (AUTO) 23.5 % (20.0-44.0); MEAN CORPUSCULAR HGB CONC 33 g/dl (31.0-36.0); MEAN CORPUSCULAR VOLUME 85 fL (80-96); MONOCYTES # (AUTO) 0.6 K/uL (0.1-1.30); MONOCYTES % (AUTO) 9.1 % (2.0-12.0); NEUTROPHILS # (AUTO) 4.1 K/uL (1.8-8.9); NEUTROPHILS % (AUTO) 66.7 % (43.0-81.0); PLATELET COUNT (AUTO) 179 K/uL (150-450); RED BLOOD CELL COUNT(AUTO) 4.95 MIL/uL (4.5-6.0); WHITE BLOOD COUNT (AUTO) 6.2 K/uL (4.3-11.0)
[2022-04-20 05:14] LABS: CALCIUM, SERUM 8.6 mg/dL (8.5-10.1); MAGNESIUM 2.5 mg/dL (1.8-2.4)
[2022-04-20 05:55] LABS: ALBUMIN 3.2 g/dL (3.4-5.0); BILIRUBIN,TOTAL 0.2 mg/dL (0.2-1.0); TOTAL PROTEIN, SERUM 6.4 g/dL (6.4-8.2)
--- NOTE | 2022-04-20 06:21 | NUR ---
ACCOUNT MANAGER TRAINEE NOTE PATIENT'S LATEST SERUM SODIUM 135, PREVIOUSLY 128. ORDER TO NOTIFY DR. HOWARD IF SODIUM INCREASES MORE THAN 0.[address] HOWARD WITH ORDER TO STOP IVF AND STOP SERUM SODIUM LAB DRAW Q4H. ORDER CARRIED OUT
--- NOTE | 2022-04-20 06:31 | NUR ---
LINE ANALYST CLOSING NOTE PATIENT SLEEPING IN BED, ALERT/ORIENTED X 3 WITH SOME PERIODS OF CONFUSION, PT VERY SLEEPY THROUGHOUT SHIFT. PT ABLE TO MAKE NEEDS KNOWN. PATIENT STABLE ON RA, NO S/S OF DISTRESS OR SOB NOTED, BREATHING EVEN AND. RAC #18G IV ACCESS INTACT AND SALINE LOCKED, IVF STOPPED PER DR. HOWARD. MEDICATIONS GIVEN ORDERED, PT NEEDS MET THROUGHOUT SHIFT, PATIENT CONTINENT AND AMBULATORY TO BATHROOM WITH WALKER AND SBA, INCONTINENT AT TIMES. SAFETY MEASURES IN PLACE: CALL LIGHT WITHIN REACH, SIDE RAILS UP X 2, BED LOCKED IN LOWEST POSITION, BED ALARM ON. WILL ENDORSE TO DAY SHIFT NURSE FOR CONTINUITY OF CARE
[2022-04-20] MEDS: BLOOD SUGAR DIAGNOSTIC 1 EACH STRIP VI SCH ×2 (07:04→12:07)
--- NOTE | 2022-04-20 07:10 | NUR ---
RN OPENING NOTE RECEIVED PT IN BED AWAKE. CALM AND COOPERATIVE. A.OX3. NO SIGNS OF RESPIRATORY DISTRESS OF SOB NOTED. SATURATING WELL ON RA 98%. TELE MONITOR READING SR AT 64. RAC 18G INTACT AND PATENT, FLUIDS DISCONTINUED. SAFETY MEASURES: BED LOCKED, BED LOW POSITION, CALL LIGHT WITHIN REACH. WILL CONTINUE TO MONITOR.
[2022-04-20] MEDS: LISINOPRIL (20MG) 20 MG TABLET PO SCH (08:53)
[2022-04-20] MEDS: OXYBUTYNIN CHLORIDE 5 MG TABLET PO SCH (08:53)
[2022-04-20] MEDS: PANTOPRAZOLE 40 MG TABLET.DR PO SCH (08:53)
[2022-04-20 08:54] VITALS: BP 129/76
[2022-04-20] MEDS: METOPROLOL TARTRATE 25 MG TABLET PO SCH (08:54)
[2022-04-20] MEDS: ARIPIPRAZOLE 5 MG TABLET PO SCH (08:54)
[2022-04-20] MEDS: HEPARIN SODIUM, PORCINE 5000 UNITS/1 ML VIAL SQ SCH (08:55)
[2022-04-20] MEDS: NICOTINE PATCH (21MG) 21 MG PATCH.TD24 TD SCH (08:58)
--- NOTE | 2022-04-20 10:00 | NUR ---
RN NOTE PT TAKEN DOWN FOR MRI.
--- NOTE | 2022-04-20 10:30 | NUR ---
RN NOTE MRI TRANSPORT DELAYED. PT RESTING IN BED
--- NOTE | 2022-04-20 12:11 | NUR ---
RN NOTE PT TRANSPORTED TO MRI.
--- NOTE | 2022-04-20 13:30 | NUR ---
RN NOTE PT BACK FROM MRI, TELE BOX CONNECTED, RESTING COMFORTABLY IN BED.
--- NOTE | 2022-04-20 16:06 | NUR ---
RN NOTE CALLED DR. HOWARD TO UPDATE ON PT MRI RESULT. DR HOWARD CLEARED PT FOR DISCHARGE. PT IS NOW DISCHARGED. CONDITION IS STABLE. DISCHARGED TO HOME AND TRANSPORTED BY BROTHER. IV AND TELE BOX DISCONTINUED. DISCHARGE EDUCATION AND INSTRUCTIONS GIVEN, DISCHARGE PAPERWORK SIGNED AND DATED. GOT VERBAL PT UNDERSTANDING. ALL NEEDS MEET. ALL SCHEDULED MEDS GIVEN. PT STABLE.
== END 2022-04-20 16:00 | disposition home health service (06) | DRG 422 ==
LOC: ER 21:17 → ICU 04-19 00:47 → TELE 04-19 19:12
PROVIDERS: ADMIT Internal Medicine; ATTEND Internal Medicine
DX: E86.0 Dehydration (principal); G93.41 Metabolic encephalopathy; E87.1 Hypo-osmolality and hyponatremia; E11.9 Type 2 diabetes mellitus without complications; Z20.822 Contact with and (suspected) exposure to COVID-19; I10 Essential (primary) hypertension; Z79.4 Long term (current) use of insulin; Z79.899 Other long term (current) drug therapy; Z87.891 Personal history of nicotine dependence; E78.5 Hyperlipidemia, unspecified; F29 Unspecified psychosis not due to a substance or known physiological condition
CPT/HCPCS: 36415; 70450-TC; 70496-TC; 70498-TC; 70551-TC; 71045-TC; 72125-TC; 80048-TC; 80053-TC; 82962-TC; 83735-TC; 84295-TC; 84300-TC; 84484-TC; 85025-TC; 85730-TC; 87081-TC; C9803; G0378; G0480; J1644; J1815; J3490; J7030; J7050; Q9967